=== PATIENT | male | born 1945 | race Caucasian/White ===

== ENCOUNTER 2021-08-09 07:00 | Day surgery (SDC) | payer MEDICARE, OTHER ==
[2021-08-09] MEDS: Lactated Ringers 1,000 ML IV SCH (07:17)
[2021-08-09] MEDS ORDERED: fentaNYL 100 MCG/2 ML SDV ONE (08:14)
[2021-08-09] MEDS ORDERED: Propofol 200 MG/20 ML SDV ONE ×2 (08:14→08:32)
[2021-08-09 09:35] VITALS: BP 131/62; PULSE 76
--- NOTE | 2021-08-09 14:18 | OR ---
DATE OF SURGERY: 08/09/2021. REFERRING PROVIDER: Lindy Driscoll MD PRE-OPERATIVE DIAGNOSIS: History of colon polyps. Last colonoscopy was 04/2014, and the patient had 2 adenomas at that time. POST-OPERATIVE DIAGNOSES: 1. Total of 4 polyps removed today. a. 1.5 cm collection of sessile polypoid tissue at the entry to the cecum. This was removed using several passes of the hot and cold snare. Base of this was also just lightly cauterized in a couple spots. b. 4 mm polyp at 130 cm, removed using cold forceps. c. 2 mm at 35 cm, removed using cold forceps. d. 2 mm at 20 cm, removed using cold forceps. 2. Normal-appearing terminal ileum. 3. Long tortuous colon. PROCEDURE: Colonoscopy with polypectomy x4 (1 using hot and cold snare and 3 using cold forceps). SURGEON: Camilo Whitley M.D. ANESTHESIA: Monitored anesthesia care. BOWEL PREP: Fair. He did require moderate irrigation and suctioning, mainly to the right and transverse colon. Seb, who goes by Jurgen, is a 76-year-old male who was brought to the endoscopy suite after discussing risks and benefits of the procedure. Informed consent was obtained for conscious sedation and colonoscopy with or without biopsy and/or polypectomy. We also discussed possibility of missed lesions. Pre- procedure exam was unremarkable. IV, oxygen, and monitors were placed. The patient was placed in the left lateral decubitus position. Sedation was administered and a digital rectal exam was performed and unremarkable. Colonoscope was passed into the rectum and slowly advanced all the way to the cecum. The patient did have a rather long and somewhat tortuous colon, and did require some abdominal pressure to obtain cecal intubation as well as the entire length of the scope. Cecum was viewed and photographed. Ileocecal valve was intubated and terminal ileum was normal in appearance. The colonoscope was slowly withdrawn and the mucosa was closed observed in a direct circumferential manner. The ascending colon near the entry to the cecum was remarkable for a 1.5 cm collection of sessile polypoid tissue. This was photographed and then removed using several passes of the hot and cold snare. Some light bleeding was noted and base was lightly cauterized in a couple of spots to also get rid of some little residual polypoid tissue. The ascending colon also revealed 4 mm polyp at 130 cm, removed using cold forceps times couple bites. The transverse colon was unremarkable. The descending colon was unremarkable. The sigmoid colon revealed 2 mm polyps at 35 cm and also at 20 cm, both removed using cold forceps. Retroflexion was performed and rectal mucosa was unremarkable. Scope was removed. The patient tolerated the procedure well. The patient was monitored until that baseline status. Discharge instructions were reviewed and the patient was discharged in good condition. COMPLICATIONS: None. TOTAL TIME: 48 minutes. ESTIMATED BLOOD LOSS: About 2 mL. RECOMMENDATIONS/FOLLOW-UP: We will await results of path report to determine ideal followup interval. I would like to kindly thank Dr. Driscoll for this referral. DMB: 08/09/2021 11:21:12 MODL: 08/09/2021 12:12:58 /[id number]
== END 2021-08-09 10:15 | disposition home or self-care (01) ==
LOC: VM.SDS 07:00
PROVIDERS: ATTEND Family Medicine
DX: Z12.11 Encounter for screening for malignant neoplasm of colon (principal); D12.2 Benign neoplasm of ascending colon; D12.5 Benign neoplasm of sigmoid colon; E11.9 Type 2 diabetes mellitus without complications; G89.29 Other chronic pain; I10 Essential (primary) hypertension; E78.00 Pure hypercholesterolemia, unspecified; Z79.899 Other long term (current) drug therapy; Z79.84 Long term (current) use of oral hypoglycemic drugs; Z98.890 Other specified postprocedural states; Z87.891 Personal history of nicotine dependence
CPT/HCPCS: 00811; 82947; 88305; J2704; J3010; J7120

== ENCOUNTER 2022-01-25 21:10 | Emergency (ER) | payer MEDICARE, OTHER ==
[2022-01-25] MEDS ORDERED: Sodium Chloride 0.9% 1,000 ML IV SCH (21:45)
[2022-01-25 22:26] LABS: CORONAVIRUS COVID-19 NAA NEGATIVE (NEGATIVE); RESPIRATORY SYNCYTIAL VIR NAA NEGATIVE (NEGATIVE)
[2022-01-25 22:28] LABS: ANION GAP 20.9 mmol/L (5-15)
[2022-01-25] MEDS ORDERED: cefTRIAXone 2 GM Vial ONE (22:37)
[2022-01-25] MEDS ORDERED: Furosemide 40 MG/4 ML VIAL IV ONE (22:54)
[2022-01-25 23:12] VITALS: BP 121/65; PULSE 100
[2022-01-25] MEDS ORDERED: Heparin Sodium/0.45% NaCl 25,000 UNITS/500 ML BAG IV SCH (23:15)
[2022-01-26] MEDS ORDERED: cefTRIAXone 2 GM Vial IVPUSH SCH (08:00)
[2022-01-26] MEDS ORDERED: cefTRIAXone 2 GM Vial IVPUSH ONE (22:28)
== END 2022-01-26 | disposition short-term general hospital (02) ==
LOC: VM.ED 21:10
DX: I21.4 Non-ST elevation (NSTEMI) myocardial infarction (principal); E87.2 Acidosis; I11.0 Hypertensive heart disease with heart failure; I50.9 Heart failure, unspecified; E87.1 Hypo-osmolality and hyponatremia; Z20.822 Contact with and (suspected) exposure to COVID-19; Z79.899 Other long term (current) drug therapy
CPT/HCPCS: 0241U; 36415; 71045; 73610-RT; 80053; 82550; 83605; 83615; 83880; 84484; 85025; 85379; 85730; 86140; 87040; 93005; 96365; 96375; 99284; 99284-25; J0696; J1644; J1940

== ENCOUNTER 2022-07-05 19:19 | Observation (INO) | payer MEDICARE, OTHER ==
[2022-07-05 20:06] LABS: CHLORIDE,CL 97 mmol/L (98-107); SODIUM,NA 139 mmol/L (136-145)
[2022-07-05 20:07] LABS: ESTIMATED GFR 51 mL/min (>=60)
[2022-07-05] MEDS ORDERED: Sodium Chloride 0.9% 1,000 ML IV SCH ×2 (20:45→22:15)
[2022-07-05] MEDS ORDERED: Ondansetron 4 MG Tab.DIS PO PRN (22:09)
[2022-07-05] MEDS ORDERED: Ondansetron 4 MG/2 ML SDV IV PRN (22:09)
[2022-07-05] MEDS ORDERED: Acetaminophen 325 MG Tab PO PRN (22:09)
[2022-07-05] MEDS ORDERED: Sodium Chloride 0.9% 10 ML Syringe FLUSH PRN (22:09)
[2022-07-05] MEDS ORDERED: Glucagon,Human Recombinant 1 MG Vial IM PRN (22:16)
[2022-07-05] MEDS ORDERED: tiZANidine 4 MG Tab PO PRN (22:16)
[2022-07-05] MEDS ORDERED: Cyclobenzaprine 10 MG Tab PO PRN (22:16)
[2022-07-05] MEDS ORDERED: 50% Dextrose in Water 50 ML Syringe IVPUSH PRN (22:16)
[2022-07-05] MEDS ORDERED: Diclofenac Sodium 1% Gel 100 GM Tube TOP PRN (22:16)
[2022-07-05] MEDS ORDERED: Polyethylene Glycol 3350 Powder 17 GM Packet PO PRN (22:16)
[2022-07-05] MEDS ORDERED: Non-Formulary Medication 1 Each (Glucagon [Gvoke Hypopen 1-Pack] 1 MG/0.2 ML Auto.Injct) SQ PRN (22:16)
[2022-07-05] MEDS ORDERED: Non-Formulary Medication 1 Each CAUDAL SCH (22:30)
[2022-07-06 08:41] LABS: CHLORIDE,CL 101 mmol/L (98-107); SODIUM,NA 142 mmol/L (136-145)
[2022-07-06 08:42] LABS: ESTIMATED GFR 69 mL/min (>=60)
[2022-07-06] MEDS ORDERED: INSULIN GLARG HUMAN REC ANALOG 100 UNIT/ML SUBCUT SCH (09:00)
[2022-07-06] MEDS ORDERED: amLODIPine 2.5 MG Tab PO SCH (09:00)
[2022-07-06] MEDS ORDERED: Insulin Lispro 100 Units/ML 3 ML Vial SUBCUT SCH (09:00)
[2022-07-06] MEDS ORDERED: Hydrochlorothiazide 25 MG Tab PO SCH (09:00)
[2022-07-06] MEDS ORDERED: glipiZIDE 5 MG Tab.ER PO SCH (09:00)
[2022-07-06] MEDS ORDERED: Pantoprazole 40 MG Tab.CR PO SCH (09:00)
[2022-07-06] MEDS ORDERED: Multivitamins with Iron/Calcium/Folic Acid/Minerals Tab PO SCH (09:00)
[2022-07-06] MEDS ORDERED: Furosemide 20 MG/2 ML VIAL IV SCH (09:00)
[2022-07-06] MEDS ORDERED: FLUoxetine 20 MG Cap PO SCH (09:00)
[2022-07-06] MEDS ORDERED: Insulin Glarg,Human.Rec.Analog 100 Unit/ML SUBCUT SCH (09:00)
[2022-07-06] MEDS ORDERED: Fish Oil/Omega-3 Fatty Acids 1 Gm Cap PO SCH (09:00)
[2022-07-06] MEDS ORDERED: Apixaban 2.5 MG Tab PO SCH (09:00)
[2022-07-06] MEDS ORDERED: predniSONE 10 MG Tab PO SCH (09:00)
[2022-07-06] MEDS ORDERED: Aspirin 81 MG Tab.EC PO SCH (09:00)
[2022-07-06] MEDS ORDERED: Baclofen 10 MG Tab PO SCH (09:00)
[2022-07-06] MEDS: Gabapentin 400 MG Cap PO SCH ×2 (09:48→12:38)
[2022-07-06] MEDS ORDERED: INSULIN LISPRO 100 UNIT/ML SUBCUT SCH (10:00)
[2022-07-06 11:25] VITALS: BP 121/54; PULSE 99
[2022-07-06] MEDS ORDERED: Furosemide 20 MG Tab PO ONE (14:04)
[2022-07-06] MEDS ORDERED: Metoprolol Succinate 25 MG Tab.ER PO SCH (21:00)
[2022-07-07] MEDS ORDERED: Furosemide 20 MG Tab PO SCH (09:00)
[2022-07-07] MEDS ORDERED: INSULIN GLARG HUMAN REC ANALOG 100 UNIT/ML SUBCUT SCH (09:00)
[2022-07-08] MEDS ORDERED: Sulfamethoxazole/Trimethoprim 800-160 MG Tab PO SCH (09:00)
[2022-07-24] MEDS ORDERED: predniSONE 10 MG Tab PO SCH (09:00)
[2022-08-23] MEDS ORDERED: predniSONE 5 MG Tab PO SCH (09:00)
== END 2022-07-06 14:30 | disposition home or self-care (01) ==
LOC: VM.ED 19:19 → VM.MS 22:00
PROVIDERS: ADMIT Physician Assistant Medical; ATTEND Physician Assistant Medical
DX: I11.0 Hypertensive heart disease with heart failure (principal); I50.1 Left ventricular failure, unspecified; R79.89 Other specified abnormal findings of blood chemistry; R53.1 Weakness; I45.10 Unspecified right bundle-branch block; J43.1 Panlobular emphysema; E80.0 Hereditary erythropoietic porphyria; F41.9 Anxiety disorder, unspecified; E11.9 Type 2 diabetes mellitus without complications; E66.9 Obesity, unspecified; E87.5 Hyperkalemia; G89.29 Other chronic pain; M25.551 Pain in right hip; M25.552 Pain in left hip; Z68.30 Body mass index [BMI] 30.0-30.9, adult; Z98.890 Other specified postprocedural states; Z87.891 Personal history of nicotine dependence; Z98.1 Arthrodesis status; Z79.84 Long term (current) use of oral hypoglycemic drugs; Z79.82 Long term (current) use of aspirin; Z79.899 Other long term (current) drug therapy; Z20.822 Contact with and (suspected) exposure to COVID-19; Z79.891 Long term (current) use of opiate analgesic
CPT/HCPCS: 36415; 70450; 71045; 80053; 81003; 82550; 82947; 83605; 83615; 83880; 84484; 85025; 86140; 93005; 93010; 94760; 96374; 99217; 99220; 99285; A9270-GY; G0378; J1815-GY; J1940; J7030; J7512; U0002

== ENCOUNTER 2022-07-15 19:10 | Emergency (ER) | payer MEDICARE, OTHER ==
[2022-07-15 20:12] LABS: ANION GAP 14.1 mmol/L (5-15); CHLORIDE,CL 89 mmol/L (98-107); ESTIMATED GFR 62 mL/min (>=60); SODIUM,NA 130 mmol/L (136-145)
[2022-07-15 21:18] VITALS: BP 152/51; PULSE 87
== END 2022-07-15 21:03 | disposition home or self-care (01) ==
LOC: VM.ED 19:10
DX: G89.4 Chronic pain syndrome (principal); M54.50 Low back pain, unspecified; E78.00 Pure hypercholesterolemia, unspecified; I10 Essential (primary) hypertension; E11.9 Type 2 diabetes mellitus without complications; E66.9 Obesity, unspecified; Z68.31 Body mass index [BMI] 31.0-31.9, adult; Z79.82 Long term (current) use of aspirin; Z79.4 Long term (current) use of insulin; Z79.899 Other long term (current) drug therapy
CPT/HCPCS: 36415; 74176; 80053; 81001; 83605; 83880; 85025; 86140; 87086; 93010; 99284

== ENCOUNTER 2022-08-25 08:40 | Inpatient (IN) | payer MEDICARE, OTHER ==
[2022-08-25] MEDS ORDERED: Sodium Chloride 0.9% 10 ML Syringe FLUSH PRN (09:00)
[2022-08-25 10:03] LABS: PTT,PARTIAL THROMBOPLSTIN TIME 28.4 SEC (20.5-30.9)
[2022-08-25 10:10] LABS: CORONAVIRUS COVID-19 NAA NEGATIVE (NEGATIVE); RESPIRATORY SYNCYTIAL VIR NAA NEGATIVE (NEGATIVE)
[2022-08-25] MEDS ORDERED: cefTRIAXone 2 GM Vial IVPUSH ONE (10:13)
[2022-08-25] MEDS ORDERED: Iopamidol 755 Mg/ML 100 ML Bottle IVPUSH ONE (10:18)
[2022-08-25] MEDS ORDERED: Azithromycin 500 MG in Sodium Chloride 0.9% 250 ML IV ONE (10:51)
[2022-08-25] MEDS ORDERED: Sodium Chloride 0.9% 1,000 ML IV SCH (11:00)
[2022-08-25] MEDS ORDERED: methylPREDNISolone Sodium Succinate 125 MG/2 ML SDV IV ONE (11:18)
[2022-08-25] MEDS ORDERED: Acetaminophen 325 MG Tab PO PRN (12:19)
[2022-08-25] MEDS ORDERED: methylPREDNISolone Sodium Succinate 125 MG/2 ML SDV ONE (13:32)
[2022-08-25] MEDS ORDERED: 50% Dextrose in Water 50 ML Syringe IVPUSH PRN (13:36)
[2022-08-25] MEDS ORDERED: Diclofenac Sodium 1% Gel 100 GM Tube TOP PRN (13:36)
[2022-08-25] MEDS ORDERED: Glucagon,Human Recombinant 1 MG Vial IM PRN (13:36)
[2022-08-25] MEDS ORDERED: INTRATHECAL PUMP EPIDUR SCH (13:45)
[2022-08-25] MEDS ORDERED: Hypromellose 0.3% Ophth Soln 15 ML Bottle EYEBOTH PRN (14:13)
[2022-08-25] MEDS ORDERED: Insulin Lispro 100 Units/ML 3 ML Vial SUBCUT SCH (18:00)
[2022-08-25] MEDS ORDERED: Albuterol/Ipratropium 3.0-0.5 MG/3 ML Neb Soln NEB PRN (18:57)
[2022-08-25] MEDS ORDERED: Metoprolol Succinate 25 MG Tab.ER PO SCH (21:00)
[2022-08-25] MEDS ORDERED: Polyethylene Glycol 3350 Powder 17 GM Packet PO SCH (21:00)
[2022-08-25] MEDS ORDERED: Apixaban 2.5 MG Tab PO SCH (21:00)
[2022-08-25] MEDS ORDERED: Gabapentin 400 MG Cap PO SCH (21:00)
[2022-08-25] MEDS ORDERED: Baclofen 10 MG Tab PO SCH (21:00)
[2022-08-25 21:10] VITALS: BP 146/67; PULSE 97
[2022-08-26] MEDS ORDERED: Pantoprazole 40 MG Tab.CR PO SCH (07:00)
[2022-08-26] MEDS ORDERED: Furosemide 20 MG Tab PO SCH (09:00)
[2022-08-26] MEDS ORDERED: Azithromycin 250 MG Tab PO SCH (09:00)
[2022-08-26] MEDS ORDERED: FLUoxetine 20 MG Cap PO SCH (09:00)
[2022-08-26] MEDS ORDERED: Sulfamethoxazole/Trimethoprim 800-160 MG Tab PO SCH (09:00)
[2022-08-26] MEDS ORDERED: Fenofibrate,Micronized 134 MG Cap PO SCH (09:00)
[2022-08-26] MEDS ORDERED: cefTRIAXone 2 GM Vial IVPUSH SCH (09:00)
[2022-08-26] MEDS ORDERED: Aspirin 81 MG Tab.EC PO SCH (09:00)
[2022-08-26] MEDS ORDERED: glipiZIDE 5 MG Tab.ER PO SCH (09:00)
[2022-08-26] MEDS ORDERED: predniSONE 20 MG Tab PO SCH (09:00)
[2022-08-26] MEDS ORDERED: Hydrochlorothiazide 25 MG Tab PO SCH (09:00)
[2022-08-26] MEDS ORDERED: Insulin Glarg,Human.Rec.Analog 100 Unit/ML SUBCUT SCH (09:00)
[2022-08-26] MEDS ORDERED: amLODIPine 2.5 MG Tab PO SCH (09:00)
[2022-08-26] MEDS ORDERED: Furosemide 20 MG Tab ONE (10:41)
[2022-08-26] MEDS ORDERED: Pantoprazole 40 MG Tab.CR ONE (10:41)
[2022-08-26] MEDS ORDERED: Baclofen 10 MG Tab ONE (10:41)
[2022-08-26] MEDS ORDERED: Aspirin 81 MG Tab.EC ONE (10:41)
[2022-08-26] MEDS ORDERED: Azithromycin 250 MG Tab ONE (10:41)
[2022-08-26] MEDS ORDERED: Cyclobenzaprine 10 MG Tab ONE ×2 (10:41→23:32)
[2022-08-26] MEDS ORDERED: FLUoxetine 20 MG Cap ONE (10:41)
[2022-08-26] MEDS ORDERED: Fenofibrate,Micronized 134 MG Cap ONE (10:41)
[2022-08-26] MEDS ORDERED: Albuterol/Ipratropium 3.0-0.5 MG/3 ML Neb Soln ONE (10:41)
[2022-08-26] MEDS ORDERED: amLODIPine 2.5 MG Tab ONE (10:41)
[2022-08-26] MEDS ORDERED: Gabapentin 400 MG Cap ONE (10:41)
[2022-08-26] MEDS ORDERED: Sulfamethoxazole/Trimethoprim 800-160 MG Tab ONE (10:41)
[2022-08-26] MEDS ORDERED: Metoprolol Succinate 25 MG Tab.ER ONE (10:41)
[2022-08-26] MEDS ORDERED: Apixaban 2.5 MG Tab ONE (10:41)
[2022-08-26] MEDS ORDERED: Hydrochlorothiazide 25 MG Tab ONE (10:41)
[2022-08-26] MEDS ORDERED: cefTRIAXone 2 GM Vial ONE (10:41)
[2022-08-26] MEDS ORDERED: Polyethylene Glycol 3350 Powder 17 GM Packet ONE (10:41)
[2022-08-26] MEDS ORDERED: glipiZIDE 5 MG Tab.ER ONE (10:41)
[2022-08-26] MEDS ORDERED: predniSONE 20 MG Tab ONE (10:41)
[2022-08-26] MEDS ORDERED: Acetaminophen 325 MG Tab ONE (10:41)
[2022-08-27] MEDS ORDERED: oxyCODONE 5 MG Tab ONE ×2 (03:40→08:52)
[2022-08-27] MEDS ORDERED: Morphine 2 MG/ML SYRINGE ONE ×2 (06:20→08:52)
[2022-08-27] MEDS ORDERED: Furosemide 20 MG Tab ONE (08:52)
[2022-08-27] MEDS ORDERED: cefTRIAXone 2 GM Vial ONE (08:52)
[2022-08-27] MEDS ORDERED: FLUoxetine 20 MG Cap ONE (08:52)
[2022-08-27] MEDS ORDERED: Baclofen 10 MG Tab ONE (08:52)
[2022-08-27] MEDS ORDERED: Azithromycin 250 MG Tab ONE (08:52)
[2022-08-27] MEDS ORDERED: Polyethylene Glycol 3350 Powder 17 GM Packet ONE (08:52)
[2022-08-27] MEDS ORDERED: Apixaban 2.5 MG Tab ONE (08:52)
[2022-08-27] MEDS ORDERED: Acetaminophen 325 MG Tab ONE (08:52)
[2022-08-27] MEDS ORDERED: amLODIPine 2.5 MG Tab ONE (08:52)
[2022-08-27] MEDS ORDERED: Aspirin 81 MG Tab.EC ONE (08:52)
[2022-08-27] MEDS ORDERED: glipiZIDE 5 MG Tab.ER ONE (08:52)
[2022-08-27] MEDS ORDERED: Metoprolol Succinate 25 MG Tab.ER ONE (08:52)
[2022-08-27] MEDS ORDERED: predniSONE 20 MG Tab ONE (08:52)
[2022-08-27] MEDS ORDERED: Albuterol/Ipratropium 3.0-0.5 MG/3 ML Neb Soln ONE (08:52)
[2022-08-27] MEDS ORDERED: Gabapentin 400 MG Cap ONE (08:52)
[2022-08-27] MEDS ORDERED: Pantoprazole 40 MG Tab.CR ONE (08:52)
[2022-08-27] MEDS ORDERED: Hydrochlorothiazide 25 MG Tab ONE (08:52)
[2022-08-27] MEDS ORDERED: Fenofibrate,Micronized 134 MG Cap ONE (08:52)
[2022-08-28] MEDS ORDERED: Cyclobenzaprine 10 MG Tab ONE ×3 (04:12→09:44)
[2022-08-28] MEDS ORDERED: Furosemide 40 MG/4 ML VIAL ONE ×2 (08:15→08:21)
[2022-08-28] MEDS ORDERED: methylPREDNISolone Sodium Succinate 125 MG/2 ML SDV ONE ×2 (08:15→08:21)
[2022-08-28] MEDS ORDERED: Fenofibrate,Micronized 134 MG Cap ONE (08:21)
[2022-08-28] MEDS ORDERED: Baclofen 10 MG Tab ONE (08:21)
[2022-08-28] MEDS ORDERED: FLUoxetine 20 MG Cap ONE (08:21)
[2022-08-28] MEDS ORDERED: Azithromycin 250 MG Tab ONE (08:21)
[2022-08-28] MEDS ORDERED: amLODIPine 2.5 MG Tab ONE (08:21)
[2022-08-28] MEDS ORDERED: glipiZIDE 2.5 MG Tab.ER ONE (08:21)
[2022-08-28] MEDS ORDERED: Furosemide 20 MG/2 ML VIAL ONE ×2 (08:21→10:24)
[2022-08-28] MEDS ORDERED: cefTRIAXone 1 GM Vial ONE ×2 (08:21→10:29)
[2022-08-28] MEDS ORDERED: Apixaban 2.5 MG Tab ONE (08:21)
[2022-08-28] MEDS ORDERED: Polyethylene Glycol 3350 Powder 17 GM Packet ONE (08:21)
[2022-08-28] MEDS ORDERED: Pantoprazole 40 MG Tab.CR ONE (08:21)
[2022-08-28] MEDS ORDERED: Cefepime 1 GM Vial ONE ×2 (08:21→11:05)
[2022-08-28] MEDS ORDERED: Aspirin 81 MG Tab.EC ONE (08:21)
[2022-08-28] MEDS ORDERED: Furosemide 20 MG Tab ONE (08:21)
[2022-08-28] MEDS ORDERED: Sulfamethoxazole/Trimethoprim 800-160 MG Tab ONE (08:21)
[2022-08-28] MEDS ORDERED: cefTRIAXone 2 GM Vial ONE (08:21)
[2022-08-28] MEDS ORDERED: Gabapentin 400 MG Cap ONE (08:21)
[2022-08-28] MEDS ORDERED: Albuterol/Ipratropium 3.0-0.5 MG/3 ML Neb Soln ONE ×2 (08:21→10:24)
[2022-08-28] MEDS ORDERED: Acetaminophen 325 MG Tab ONE (08:21)
[2022-08-28] MEDS ORDERED: Vancomycin/Water for INJ (PEG) 1.5 GM/300 ML Premix ONE (08:21)
[2022-08-28] MEDS ORDERED: VANCOmycin 1.5 GM/300 ML 300 ML ONE (11:05)
[2022-08-28 11:46] LABS: ANION GAP 9.8 mmol/L (5-15)
[2022-08-28 13:08] LABS: PCO2 ARTERIAL,POC 37 mmHg (35-48)
[2022-09-15] MEDS ORDERED: Gabapentin 300 MG Cap ONE (20:03)
[2022-09-19 15:48] LABS: ANION GAP 11.4 mmol/L (5-15)
[2022-09-19 15:49] LABS: PCO2 ARTERIAL,POC 38 mmHg (35-48)
[2022-09-19 16:23] LABS: PCO2 ARTERIAL,POC 37 mmHg (35-48)
[2022-09-19 16:25] LABS: ANION GAP 12.3 mmol/L (5-15)
== END 2022-08-28 12:20 | disposition short-term general hospital (02) | DRG 193 ==
LOC: VM.ED 08:40 → UNDOADMIN 11:39 → VM.MS 11:39 → VM.ZCENSUS 08-26 12:12
PROVIDERS: ADMIT Family Medicine; ATTEND Family Medicine
DX: J18.9 Pneumonia, unspecified organism (principal); J96.21 Acute and chronic respiratory failure with hypoxia; L03.116 Cellulitis of left lower limb; E11.9 Type 2 diabetes mellitus without complications; M54.50 Low back pain, unspecified; M60.9 Myositis, unspecified; J43.1 Panlobular emphysema; Z96.698 Presence of other orthopedic joint implants; Z20.822 Contact with and (suspected) exposure to COVID-19; I10 Essential (primary) hypertension; J84.10 Pulmonary fibrosis, unspecified; K59.00 Constipation, unspecified; I48.0 Paroxysmal atrial fibrillation; G89.4 Chronic pain syndrome; I48.91 Unspecified atrial fibrillation; E78.5 Hyperlipidemia, unspecified; F32.A Depression, unspecified; G25.81 Restless legs syndrome; E66.9 Obesity, unspecified; Z79.82 Long term (current) use of aspirin; Z68.29 Body mass index [BMI] 29.0-29.9, adult; Z79.899 Other long term (current) drug therapy; Z86.010 Personal history of colon polyps; Z79.4 Long term (current) use of insulin; Z87.891 Personal history of nicotine dependence; Z98.42 Cataract extraction status, left eye; Z98.41 Cataract extraction status, right eye; Z90.89 Acquired absence of other organs; Z79.01 Long term (current) use of anticoagulants
CPT/HCPCS: 0241U; 36415; 36600; 71045; 71275; 80048; 80053; 81003; 82803; 82947; 83605; 83735; 83880; 84484; 85025; 85379; 85610; 85730; 86140; 87040; 93005; 93010; 94640; 94660; 94760; 96374; 96375; 97161-GP; 99285; 99285-25; A9270-GY; J0456; J0692; J0696; J1815-GY; J1940; J2270; J2930; J3370; J7030; J7050; J7512; J7620-GY; Q9967

== ENCOUNTER 2022-09-10 14:03 | Inpatient (IN) | payer MEDICARE, OTHER ==
[2022-09-10] MEDS ORDERED: Albuterol 0.083% 2.5 MG/3 ML Neb Soln NEB PRN (15:00)
[2022-09-10] MEDS ORDERED: Glucagon,Human Recombinant 1 MG Vial IM PRN (16:36)
[2022-09-10] MEDS ORDERED: Cyclobenzaprine 10 MG Tab PO PRN (16:38)
[2022-09-10] MEDS ORDERED: Polyethylene Glycol 3350 Powder 17 GM Packet PO PRN (16:48)
[2022-09-10] MEDS ORDERED: Hypromellose 0.3% Ophth Soln 15 ML Bottle EYEBOTH PRN (16:50)
[2022-09-10] MEDS ORDERED: Magnesium Hydroxide 400 MG/5 ML Susp 30 ML Cup PO PRN (16:56)
[2022-09-10] MEDS ORDERED: Docusate Sodium 100 MG Cap PO PRN (16:57)
[2022-09-10] MEDS: Acetaminophen 500 MG Tab PO PRN (17:22)
[2022-09-10] MEDS: Insulin Lispro 100 Units/ML 3 ML Vial SUBCUT SCH ×3 (18:23→20:54)
[2022-09-10] MEDS: Insulin Glarg,Human.Rec.Analog 100 Unit/ML SUBCUT SCH (21:00)
[2022-09-10] MEDS: Melatonin 3 MG Tab PO SCH (21:02)
[2022-09-10] MEDS: Gabapentin 400 MG Cap PO SCH (21:02)
[2022-09-10] MEDS: Fish Oil/Omega-3 Fatty Acids 1 Gm Cap PO SCH (21:03)
[2022-09-10] MEDS: Baclofen 10 MG Tab PO SCH (21:03)
[2022-09-10] MEDS: Apixaban 2.5 MG Tab PO SCH (21:03)
[2022-09-10] MEDS: Albuterol/Ipratropium 3.0-0.5 MG/3 ML Neb Soln NEB SCH (21:05)
[2022-09-10] MEDS: Budesonide 0.5 MG/2 ML Neb Susp NEB SCH (21:05)
[2022-09-10] MEDS: Diclofenac Sodium 1% Gel 100 GM Tube TOP SCH (21:20)
[2022-09-11] MEDS: Pantoprazole 40 MG Tab.CR PO SCH (06:52)
[2022-09-11] MEDS: Budesonide 0.5 MG/2 ML Neb Susp NEB SCH ×2 (07:46→20:41)
[2022-09-11] MEDS: Albuterol/Ipratropium 3.0-0.5 MG/3 ML Neb Soln NEB SCH ×2 (07:46→20:41)
[2022-09-11] MEDS: Aspirin 81 MG Tab.EC PO SCH (08:17)
[2022-09-11] MEDS: Gabapentin 400 MG Cap PO SCH ×3 (08:17→20:39)
[2022-09-11] MEDS: Metoprolol Succinate 25 MG Tab.ER PO SCH (08:18)
[2022-09-11] MEDS: Cholecalciferol (Vitamin D3) 25 MCG Tab PO SCH (08:18)
[2022-09-11] MEDS: Fish Oil/Omega-3 Fatty Acids 1 Gm Cap PO SCH ×2 (08:22→20:40)
[2022-09-11] MEDS: predniSONE 20 MG Tab PO SCH (08:22)
[2022-09-11] MEDS: Multivitamins with Iron/Calcium/Folic Acid/Minerals Tab PO SCH (08:22)
[2022-09-11] MEDS: Fenofibrate,Micronized 134 MG Cap PO SCH (08:22)
[2022-09-11] MEDS: Sulfamethoxazole/Trimethoprim 800-160 MG Tab PO SCH (08:23)
[2022-09-11] MEDS: Baclofen 10 MG Tab PO SCH ×2 (08:23→20:40)
[2022-09-11] MEDS: FLUoxetine 20 MG Cap PO SCH (08:24)
[2022-09-11] MEDS: Furosemide 20 MG Tab PO SCH (08:25)
[2022-09-11] MEDS: Insulin Lispro 100 Units/ML 3 ML Vial SUBCUT SCH ×7 (08:27→20:30)
[2022-09-11] MEDS: Diclofenac Sodium 1% Gel 100 GM Tube TOP SCH ×2 (08:28→20:33)
[2022-09-11] MEDS: Insulin Glarg,Human.Rec.Analog 100 Unit/ML SUBCUT SCH ×2 (08:28→20:27)
[2022-09-11] MEDS: Apixaban 2.5 MG Tab PO SCH ×2 (08:30→21:13)
[2022-09-11] MEDS ORDERED: atorvaSTATin 40 MG Tab PO SCH (09:00)
[2022-09-11] MEDS: Acetaminophen 500 MG Tab PO PRN (10:18)
[2022-09-11] MEDS: Ferrous Sulfate 325 MG Tab PO SCH (10:18)
[2022-09-11] MEDS ORDERED: Melatonin 3 MG Tab PO PRN (19:19)
[2022-09-11] MEDS: Melatonin 3 MG Tab PO SCH (23:51)
[2022-09-12] MEDS ORDERED: [UNRECOGNIZED DRUG - SUPPLY] SCH (00:01)
[2022-09-12] MEDS: Pantoprazole 40 MG Tab.CR PO SCH (06:42)
[2022-09-12] MEDS: Budesonide 0.5 MG/2 ML Neb Susp NEB SCH ×2 (06:43→20:01)
[2022-09-12] MEDS: Albuterol/Ipratropium 3.0-0.5 MG/3 ML Neb Soln NEB SCH ×2 (06:43→20:00)
[2022-09-12] MEDS: Fenofibrate,Micronized 134 MG Cap PO SCH (08:29)
[2022-09-12] MEDS: Aspirin 81 MG Tab.EC PO SCH (08:30)
[2022-09-12] MEDS: Fish Oil/Omega-3 Fatty Acids 1 Gm Cap PO SCH ×2 (08:30→20:02)
[2022-09-12] MEDS: FLUoxetine 20 MG Cap PO SCH (08:30)
[2022-09-12] MEDS: Gabapentin 400 MG Cap PO SCH ×3 (08:30→20:01)
[2022-09-12] MEDS: Metoprolol Succinate 25 MG Tab.ER PO SCH (08:31)
[2022-09-12] MEDS: Furosemide 20 MG Tab PO SCH (08:32)
[2022-09-12] MEDS: Cholecalciferol (Vitamin D3) 25 MCG Tab PO SCH (08:32)
[2022-09-12] MEDS: Baclofen 10 MG Tab PO SCH ×2 (08:32→20:02)
[2022-09-12] MEDS: Multivitamins with Iron/Calcium/Folic Acid/Minerals Tab PO SCH (08:32)
[2022-09-12] MEDS: Apixaban 2.5 MG Tab PO SCH ×2 (08:33→20:01)
[2022-09-12] MEDS: predniSONE 20 MG Tab PO SCH (08:34)
[2022-09-12] MEDS: Diclofenac Sodium 1% Gel 100 GM Tube TOP SCH ×2 (08:35→20:15)
[2022-09-12] MEDS: Insulin Lispro 100 Units/ML 3 ML Vial SUBCUT SCH ×7 (08:37→20:23)
[2022-09-12] MEDS: Insulin Glarg,Human.Rec.Analog 100 Unit/ML SUBCUT SCH ×2 (08:39→20:21)
[2022-09-12] MEDS: Acetaminophen 500 MG Tab PO PRN ×2 (14:14→20:25)
[2022-09-12] MEDS: Melatonin 3 MG Tab PO SCH (20:18)
[2022-09-13] MEDS: Acetaminophen 500 MG Tab PO PRN ×2 (05:58→21:03)
[2022-09-13] MEDS: Budesonide 0.5 MG/2 ML Neb Susp NEB SCH ×2 (06:09→20:47)
[2022-09-13] MEDS: Albuterol/Ipratropium 3.0-0.5 MG/3 ML Neb Soln NEB SCH ×2 (06:09→20:47)
[2022-09-13] MEDS: Pantoprazole 40 MG Tab.CR PO SCH (06:09)
[2022-09-13 07:00] LABS: ANION GAP 15.4 mmol/L (5-15)
[2022-09-13] MEDS: FLUoxetine 20 MG Cap PO SCH (08:57)
[2022-09-13] MEDS: Apixaban 2.5 MG Tab PO SCH ×2 (08:57→20:51)
[2022-09-13] MEDS: predniSONE 20 MG Tab PO SCH (08:57)
[2022-09-13] MEDS: Gabapentin 400 MG Cap PO SCH ×3 (08:58→20:47)
[2022-09-13] MEDS: Fenofibrate,Micronized 134 MG Cap PO SCH (08:58)
[2022-09-13] MEDS: Baclofen 10 MG Tab PO SCH ×2 (08:58→20:50)
[2022-09-13] MEDS: Fish Oil/Omega-3 Fatty Acids 1 Gm Cap PO SCH ×2 (08:58→20:48)
[2022-09-13] MEDS: Sulfamethoxazole/Trimethoprim 800-160 MG Tab PO SCH (08:58)
[2022-09-13] MEDS: Multivitamins with Iron/Calcium/Folic Acid/Minerals Tab PO SCH (08:59)
[2022-09-13] MEDS: Aspirin 81 MG Tab.EC PO SCH (08:59)
[2022-09-13] MEDS: Cholecalciferol (Vitamin D3) 25 MCG Tab PO SCH (08:59)
[2022-09-13] MEDS: Furosemide 20 MG Tab PO SCH (08:59)
[2022-09-13] MEDS: Diclofenac Sodium 1% Gel 100 GM Tube TOP SCH ×2 (09:04→20:52)
[2022-09-13] MEDS: Insulin Lispro 100 Units/ML 3 ML Vial SUBCUT SCH ×7 (09:04→21:06)
[2022-09-13] MEDS: Metoprolol Succinate 25 MG Tab.ER PO SCH (09:06)
[2022-09-13] MEDS: Ferrous Sulfate 325 MG Tab PO SCH (09:08)
[2022-09-13] MEDS: Insulin Glarg,Human.Rec.Analog 100 Unit/ML SUBCUT SCH (09:19)
[2022-09-13] MEDS: Melatonin 3 MG Tab PO SCH (20:55)
[2022-09-14] MEDS: Acetaminophen 500 MG Tab PO PRN ×2 (05:23→14:56)
[2022-09-14] MEDS: Pantoprazole 40 MG Tab.CR PO SCH (06:01)
[2022-09-14] MEDS: Albuterol/Ipratropium 3.0-0.5 MG/3 ML Neb Soln NEB SCH ×2 (06:02→20:57)
[2022-09-14] MEDS: Budesonide 0.5 MG/2 ML Neb Susp NEB SCH ×2 (06:02→20:57)
[2022-09-14] MEDS: Fenofibrate,Micronized 134 MG Cap PO SCH (09:12)
[2022-09-14] MEDS: Apixaban 2.5 MG Tab PO SCH ×2 (09:12→20:55)
[2022-09-14] MEDS: Furosemide 20 MG Tab PO SCH (09:13)
[2022-09-14] MEDS: Gabapentin 400 MG Cap PO SCH ×3 (09:13→20:54)
[2022-09-14] MEDS: predniSONE 20 MG Tab PO SCH (09:13)
[2022-09-14] MEDS: Metoprolol Succinate 25 MG Tab.ER PO SCH (09:14)
[2022-09-14] MEDS: FLUoxetine 20 MG Cap PO SCH (09:14)
[2022-09-14] MEDS: Aspirin 81 MG Tab.EC PO SCH (09:14)
[2022-09-14] MEDS: Baclofen 10 MG Tab PO SCH ×2 (09:14→20:56)
[2022-09-14] MEDS: Cholecalciferol (Vitamin D3) 25 MCG Tab PO SCH (09:14)
[2022-09-14] MEDS: Fish Oil/Omega-3 Fatty Acids 1 Gm Cap PO SCH ×2 (09:14→20:56)
[2022-09-14] MEDS: Multivitamins with Iron/Calcium/Folic Acid/Minerals Tab PO SCH (09:15)
[2022-09-14] MEDS: Insulin Glarg,Human.Rec.Analog 100 Unit/ML SUBCUT SCH (09:25)
[2022-09-14] MEDS: Diclofenac Sodium 1% Gel 100 GM Tube TOP SCH ×2 (09:27→21:00)
[2022-09-14] MEDS: Insulin Lispro 100 Units/ML 3 ML Vial SUBCUT SCH ×3 (11:51→17:26)
[2022-09-14] MEDS: Cyclobenzaprine 10 MG Tab PO PRN (19:23)
[2022-09-14] MEDS: Melatonin 3 MG Tab PO SCH (20:56)
[2022-09-15] MEDS: Albuterol/Ipratropium 3.0-0.5 MG/3 ML Neb Soln NEB SCH ×2 (06:26→20:51)
[2022-09-15] MEDS: Pantoprazole 40 MG Tab.CR PO SCH (06:26)
[2022-09-15] MEDS: Budesonide 0.5 MG/2 ML Neb Susp NEB SCH ×2 (06:26→20:51)
[2022-09-15] MEDS: Acetaminophen 500 MG Tab PO PRN ×2 (07:03→14:27)
[2022-09-15] MEDS: Apixaban 2.5 MG Tab PO SCH ×2 (08:09→20:51)
[2022-09-15] MEDS: Gabapentin 400 MG Cap PO SCH ×3 (08:09→21:06)
[2022-09-15] MEDS: FLUoxetine 20 MG Cap PO SCH (08:09)
[2022-09-15] MEDS: Fenofibrate,Micronized 134 MG Cap PO SCH (08:09)
[2022-09-15] MEDS: Cholecalciferol (Vitamin D3) 25 MCG Tab PO SCH (08:10)
[2022-09-15] MEDS: Metoprolol Succinate 25 MG Tab.ER PO SCH (08:11)
[2022-09-15] MEDS: predniSONE 20 MG Tab PO SCH (08:12)
[2022-09-15] MEDS: Furosemide 20 MG Tab PO SCH (08:12)
[2022-09-15] MEDS: Multivitamins with Iron/Calcium/Folic Acid/Minerals Tab PO SCH (08:12)
[2022-09-15] MEDS: Aspirin 81 MG Tab.EC PO SCH (08:12)
[2022-09-15] MEDS: Fish Oil/Omega-3 Fatty Acids 1 Gm Cap PO SCH ×2 (08:12→20:52)
[2022-09-15] MEDS: Baclofen 10 MG Tab PO SCH ×2 (08:13→20:52)
[2022-09-15] MEDS: Insulin Lispro 100 Units/ML 3 ML Vial SUBCUT SCH ×2 (08:19→17:24)
[2022-09-15] MEDS: Insulin Glarg,Human.Rec.Analog 100 Unit/ML SUBCUT SCH (08:21)
[2022-09-15] MEDS: Diclofenac Sodium 1% Gel 100 GM Tube TOP SCH ×2 (08:23→21:14)
[2022-09-15] MEDS: Ferrous Sulfate 325 MG Tab PO SCH (08:27)
[2022-09-15] MEDS: Cyclobenzaprine 10 MG Tab PO PRN (10:47)
[2022-09-15] MEDS ORDERED: Gabapentin 300 MG Cap ONE (13:00)
[2022-09-15] MEDS: Melatonin 3 MG Tab PO SCH (20:51)
[2022-09-16] MEDS: Pantoprazole 40 MG Tab.CR PO SCH (06:10)
[2022-09-16] MEDS: Budesonide 0.5 MG/2 ML Neb Susp NEB SCH ×2 (06:10→20:05)
[2022-09-16] MEDS: Albuterol/Ipratropium 3.0-0.5 MG/3 ML Neb Soln NEB SCH ×2 (06:10→20:05)
[2022-09-16] MEDS: Cholecalciferol (Vitamin D3) 25 MCG Tab PO SCH (09:39)
[2022-09-16] MEDS: Aspirin 81 MG Tab.EC PO SCH (09:39)
[2022-09-16] MEDS: Fenofibrate,Micronized 134 MG Cap PO SCH (09:39)
[2022-09-16] MEDS: Apixaban 2.5 MG Tab PO SCH ×2 (09:39→20:06)
[2022-09-16] MEDS: Baclofen 10 MG Tab PO SCH ×2 (09:39→20:06)
[2022-09-16] MEDS: Fish Oil/Omega-3 Fatty Acids 1 Gm Cap PO SCH ×2 (09:40→20:06)
[2022-09-16] MEDS: Multivitamins with Iron/Calcium/Folic Acid/Minerals Tab PO SCH (09:41)
[2022-09-16] MEDS: FLUoxetine 20 MG Cap PO SCH (09:41)
[2022-09-16] MEDS: predniSONE 20 MG Tab PO SCH (09:41)
[2022-09-16] MEDS: Gabapentin 400 MG Cap PO SCH ×3 (09:42→20:06)
[2022-09-16] MEDS: Furosemide 20 MG Tab PO SCH (09:42)
[2022-09-16] MEDS: Metoprolol Succinate 25 MG Tab.ER PO SCH (09:42)
[2022-09-16] MEDS: Sulfamethoxazole/Trimethoprim 800-160 MG Tab PO SCH (09:43)
[2022-09-16] MEDS: Acetaminophen 500 MG Tab PO PRN ×2 (09:51→17:45)
[2022-09-16] MEDS: Insulin Glarg,Human.Rec.Analog 100 Unit/ML SUBCUT SCH (09:53)
[2022-09-16] MEDS: Insulin Lispro 100 Units/ML 3 ML Vial SUBCUT SCH ×2 (09:54→17:24)
[2022-09-16] MEDS: Diclofenac Sodium 1% Gel 100 GM Tube TOP SCH ×2 (10:10→20:07)
[2022-09-16] MEDS: Melatonin 3 MG Tab PO SCH (20:06)
[2022-09-17] MEDS: Acetaminophen 500 MG Tab PO PRN ×3 (05:25→18:05)
[2022-09-17] MEDS: Albuterol/Ipratropium 3.0-0.5 MG/3 ML Neb Soln NEB SCH ×2 (06:22→20:21)
[2022-09-17] MEDS: Budesonide 0.5 MG/2 ML Neb Susp NEB SCH ×2 (06:22→20:21)
[2022-09-17] MEDS: Pantoprazole 40 MG Tab.CR PO SCH (06:22)
[2022-09-17 07:30] LABS: ANION GAP 11.4 mmol/L (5-15)
[2022-09-17] MEDS ORDERED: predniSONE 20 MG Tab PO SCH (09:00)
[2022-09-17] MEDS: Apixaban 2.5 MG Tab PO SCH ×2 (09:49→20:21)
[2022-09-17] MEDS: Fenofibrate,Micronized 134 MG Cap PO SCH (09:50)
[2022-09-17] MEDS: predniSONE 40 MG, predniSONE 10 MG PO SCH ×2 (09:50)
[2022-09-17] MEDS: FLUoxetine 20 MG Cap PO SCH (09:50)
[2022-09-17] MEDS: Multivitamins with Iron/Calcium/Folic Acid/Minerals Tab PO SCH (09:50)
[2022-09-17] MEDS: Gabapentin 400 MG Cap PO SCH ×3 (09:51→20:22)
[2022-09-17] MEDS: Metoprolol Succinate 25 MG Tab.ER PO SCH (09:51)
[2022-09-17] MEDS: Furosemide 20 MG Tab PO SCH (09:51)
[2022-09-17] MEDS: Fish Oil/Omega-3 Fatty Acids 1 Gm Cap PO SCH ×2 (09:52→20:22)
[2022-09-17] MEDS: Aspirin 81 MG Tab.EC PO SCH (09:52)
[2022-09-17] MEDS: Cholecalciferol (Vitamin D3) 25 MCG Tab PO SCH (09:52)
[2022-09-17] MEDS: Baclofen 10 MG Tab PO SCH ×2 (09:52→20:22)
[2022-09-17] MEDS: Ferrous Sulfate 325 MG Tab PO SCH (09:56)
[2022-09-17] MEDS: Diclofenac Sodium 1% Gel 100 GM Tube TOP SCH ×2 (09:57→20:25)
[2022-09-17] MEDS: Insulin Glarg,Human.Rec.Analog 100 Unit/ML SUBCUT SCH (10:03)
[2022-09-17] MEDS: Insulin Lispro 100 Units/ML 3 ML Vial SUBCUT SCH ×2 (10:04→18:07)
[2022-09-17] MEDS: Melatonin 3 MG Tab PO SCH (20:22)
[2022-09-18] MEDS: Pantoprazole 40 MG Tab.CR PO SCH (06:30)
[2022-09-18] MEDS: Budesonide 0.5 MG/2 ML Neb Susp NEB SCH ×2 (06:30→20:12)
[2022-09-18] MEDS: Albuterol/Ipratropium 3.0-0.5 MG/3 ML Neb Soln NEB SCH ×2 (06:30→20:12)
[2022-09-18] MEDS ORDERED: predniSONE 10 MG Tab ONE (07:35)
[2022-09-18] MEDS: Gabapentin 400 MG Cap PO SCH ×4 (07:36→20:12)
[2022-09-18] MEDS: FLUoxetine 20 MG Cap PO SCH ×2 (07:37→10:34)
[2022-09-18] MEDS: Baclofen 10 MG Tab PO SCH ×3 (07:37→20:13)
[2022-09-18] MEDS: Fish Oil/Omega-3 Fatty Acids 1 Gm Cap PO SCH ×3 (07:37→20:13)
[2022-09-18] MEDS: Sulfamethoxazole/Trimethoprim 800-160 MG Tab PO SCH ×2 (07:37→10:35)
[2022-09-18] MEDS: Furosemide 20 MG Tab PO SCH ×2 (07:38→10:33)
[2022-09-18] MEDS: Multivitamins with Iron/Calcium/Folic Acid/Minerals Tab PO SCH ×2 (07:39→10:35)
[2022-09-18] MEDS: Cholecalciferol (Vitamin D3) 25 MCG Tab PO SCH ×2 (07:39→10:36)
[2022-09-18] MEDS: Apixaban 2.5 MG Tab PO SCH ×3 (07:39→20:13)
[2022-09-18] MEDS: Fenofibrate,Micronized 134 MG Cap PO SCH ×2 (07:39→10:31)
[2022-09-18] MEDS: Aspirin 81 MG Tab.EC PO SCH ×2 (07:39→10:32)
[2022-09-18] MEDS: Metoprolol Succinate 25 MG Tab.ER PO SCH ×2 (07:40→10:36)
[2022-09-18] MEDS: predniSONE 40 MG, predniSONE 10 MG PO SCH ×4 (07:42→10:33)
[2022-09-18] MEDS: Insulin Glarg,Human.Rec.Analog 100 Unit/ML SUBCUT SCH ×2 (07:49→10:32)
[2022-09-18] MEDS: Insulin Lispro 100 Units/ML 3 ML Vial SUBCUT SCH ×3 (07:50→17:58)
[2022-09-18] MEDS: Diclofenac Sodium 1% Gel 100 GM Tube TOP SCH ×2 (10:36→20:13)
[2022-09-18] MEDS: Acetaminophen 500 MG Tab PO PRN (10:54)
[2022-09-18] MEDS: Melatonin 3 MG Tab PO SCH (20:13)
[2022-09-19] MEDS: Budesonide 0.5 MG/2 ML Neb Susp NEB SCH ×2 (05:59→20:15)
[2022-09-19] MEDS: Pantoprazole 40 MG Tab.CR PO SCH (05:59)
[2022-09-19] MEDS: Albuterol/Ipratropium 3.0-0.5 MG/3 ML Neb Soln NEB SCH ×2 (05:59→20:15)
[2022-09-19] MEDS: Fenofibrate,Micronized 134 MG Cap PO SCH (09:13)
[2022-09-19] MEDS: predniSONE 40 MG, predniSONE 10 MG PO SCH ×2 (09:13)
[2022-09-19] MEDS: Multivitamins with Iron/Calcium/Folic Acid/Minerals Tab PO SCH (09:14)
[2022-09-19] MEDS: Apixaban 2.5 MG Tab PO SCH ×2 (09:14→20:15)
[2022-09-19] MEDS: FLUoxetine 20 MG Cap PO SCH (09:14)
[2022-09-19] MEDS: Cholecalciferol (Vitamin D3) 25 MCG Tab PO SCH (09:15)
[2022-09-19] MEDS: Gabapentin 400 MG Cap PO SCH ×3 (09:15→20:15)
[2022-09-19] MEDS: Fish Oil/Omega-3 Fatty Acids 1 Gm Cap PO SCH ×2 (09:15→20:16)
[2022-09-19] MEDS: Metoprolol Succinate 25 MG Tab.ER PO SCH (09:16)
[2022-09-19] MEDS: Aspirin 81 MG Tab.EC PO SCH (09:16)
[2022-09-19] MEDS: Furosemide 20 MG Tab PO SCH (09:18)
[2022-09-19] MEDS: Baclofen 10 MG Tab PO SCH ×2 (09:18→20:16)
[2022-09-19] MEDS: Diclofenac Sodium 1% Gel 100 GM Tube TOP SCH ×2 (09:18→20:16)
[2022-09-19] MEDS: Insulin Glarg,Human.Rec.Analog 100 Unit/ML SUBCUT SCH (09:19)
[2022-09-19] MEDS: Insulin Lispro 100 Units/ML 3 ML Vial SUBCUT SCH ×2 (09:22→18:35)
[2022-09-19] MEDS: Ferrous Sulfate 325 MG Tab PO SCH (09:25)
[2022-09-19] MEDS: Acetaminophen 500 MG Tab PO PRN (11:38)
[2022-09-19] MEDS: Melatonin 3 MG Tab PO SCH (20:15)
[2022-09-20] MEDS: Albuterol/Ipratropium 3.0-0.5 MG/3 ML Neb Soln NEB SCH (06:14)
[2022-09-20] MEDS: Budesonide 0.5 MG/2 ML Neb Susp NEB SCH (06:14)
[2022-09-20] MEDS: Pantoprazole 40 MG Tab.CR PO SCH (06:14)
[2022-09-20] MEDS ORDERED: Menthol/Zinc Oxide Ointment 3.5 GM Tube TOP PRN (07:54)
[2022-09-20] MEDS: Insulin Lispro 100 Units/ML 3 ML Vial SUBCUT SCH (08:19)
[2022-09-20] MEDS: Insulin Glarg,Human.Rec.Analog 100 Unit/ML SUBCUT SCH (08:28)
[2022-09-20] MEDS: predniSONE 40 MG, predniSONE 10 MG PO SCH ×2 (08:31)
[2022-09-20] MEDS: Metoprolol Succinate 25 MG Tab.ER PO SCH (08:31)
[2022-09-20] MEDS: Baclofen 10 MG Tab PO SCH (08:34)
[2022-09-20] MEDS: Sulfamethoxazole/Trimethoprim 800-160 MG Tab PO SCH (08:35)
[2022-09-20] MEDS: Fish Oil/Omega-3 Fatty Acids 1 Gm Cap PO SCH (08:35)
[2022-09-20] MEDS: Gabapentin 400 MG Cap PO SCH (08:35)
[2022-09-20] MEDS: Fenofibrate,Micronized 134 MG Cap PO SCH (08:35)
[2022-09-20] MEDS: Furosemide 20 MG Tab PO SCH (08:36)
[2022-09-20] MEDS: Cholecalciferol (Vitamin D3) 25 MCG Tab PO SCH (08:37)
[2022-09-20] MEDS: Apixaban 2.5 MG Tab PO SCH (08:37)
[2022-09-20] MEDS: Multivitamins with Iron/Calcium/Folic Acid/Minerals Tab PO SCH (08:37)
[2022-09-20] MEDS: FLUoxetine 20 MG Cap PO SCH (08:38)
[2022-09-20] MEDS: Aspirin 81 MG Tab.EC PO SCH (08:38)
[2022-09-20] MEDS: Diclofenac Sodium 1% Gel 100 GM Tube TOP SCH (08:38)
[2022-09-20 08:39] VITALS: BP 117/50; PULSE 87
[2022-09-20] MEDS: Acetaminophen 500 MG Tab PO PRN (10:59)
[2022-09-24] MEDS ORDERED: predniSONE 20 MG Tab PO SCH (09:00)
== END 2022-09-20 11:30 | disposition home health service (06) | DRG 947 ==
LOC: VM.MS 14:03
PROVIDERS: ADMIT Family Medicine; ATTEND Family Medicine
DX: R53.1 Weakness (principal); J18.9 Pneumonia, unspecified organism; J80 Acute respiratory distress syndrome; J44.1 Chronic obstructive pulmonary disease with (acute) exacerbation; J44.0 Chronic obstructive pulmonary disease with (acute) lower respiratory infection; I48.20 Chronic atrial fibrillation, unspecified; I50.32 Chronic diastolic (congestive) heart failure; E87.1 Hypo-osmolality and hyponatremia; E11.9 Type 2 diabetes mellitus without complications; G89.29 Other chronic pain; M54.59 Other low back pain; F41.9 Anxiety disorder, unspecified; I11.0 Hypertensive heart disease with heart failure; I27.20 Pulmonary hypertension, unspecified; Z66 Do not resuscitate; E87.6 Hypokalemia; E78.00 Pure hypercholesterolemia, unspecified; R41.0 Disorientation, unspecified; Z79.899 Other long term (current) drug therapy; Z79.84 Long term (current) use of oral hypoglycemic drugs; Z79.01 Long term (current) use of anticoagulants; Z79.52 Long term (current) use of systemic steroids
CPT/HCPCS: 36415; 80048; 81003; 82947; 83880; 85025; 94640; 94760; 95851-GO; 97110-GP; 97116-GP; 97161-GP; 97165-GO; 97535-GO; A9270-GY; J1815-GY; J7512; J7620-GY

== ENCOUNTER 2022-11-26 15:10 | Inpatient (IN) | payer MEDICARE, OTHER ==
[2022-11-26] MEDS ORDERED: Sodium Chloride 0.9% 10 ML Syringe FLUSH PRN (15:25)
[2022-11-26] MEDS ORDERED: cefTRIAXone 2 GM Vial IVPUSH ONE (15:50)
[2022-11-26] MEDS ORDERED: methylPREDNISolone Sodium Succinate 125 MG/2 ML SDV IV ONE (15:50)
[2022-11-26] MEDS ORDERED: Azithromycin 500 MG in Sodium Chloride 0.9% 250 ML IV ONE (15:51)
[2022-11-26] MEDS ORDERED: Furosemide 40 MG/4 ML VIAL IV ONE (15:52)
[2022-11-26 16:10] LABS: PCO2 ARTERIAL,POC 38 mmHg (35-48)
[2022-11-26 16:12] LABS: PTT,PARTIAL THROMBOPLSTIN TIME 30.1 SEC (20.5-30.9)
[2022-11-26 16:21] LABS: CHLORIDE,CL 95 mmol/L (98-107); SODIUM,NA 133 mmol/L (136-145)
[2022-11-26 16:24] LABS: ANION GAP 14.7 mmol/L (5-15); ESTIMATED GFR 47 mL/min (>=60)
[2022-11-26 16:44] LABS: CORONAVIRUS COVID-19 NAA NEGATIVE (NEGATIVE); RESPIRATORY SYNCYTIAL VIR NAA NEGATIVE (NEGATIVE)
[2022-11-26] MEDS ORDERED: Ondansetron 4 MG/2 ML SDV IV PRN (17:48)
[2022-11-26] MEDS ORDERED: Hypromellose 0.3% Ophth Soln 15 ML Bottle EYEBOTH PRN (17:57)
[2022-11-26] MEDS ORDERED: Albuterol 0.083% 2.5 MG/3 ML Neb Soln NEB PRN (17:57)
[2022-11-26] MEDS ORDERED: 50% Dextrose in Water 50 ML Syringe IVPUSH PRN (17:57)
[2022-11-26] MEDS ORDERED: Polyethylene Glycol 3350 Powder 17 GM Packet PO PRN (17:57)
[2022-11-26] MEDS ORDERED: Glucagon,Human Recombinant 1 MG Vial IM PRN ×2 (17:57)
[2022-11-26] MEDS ORDERED: HYDROMORPHONE SCH (18:00)
[2022-11-26] MEDS ORDERED: BUPIVACAINE SCH (18:00)
[2022-11-26] MEDS: Apixaban 2.5 MG Tab PO SCH (21:09)
[2022-11-26] MEDS: Melatonin 3 MG Tab PO SCH (21:10)
[2022-11-26] MEDS: Metoprolol Succinate 25 MG Tab.ER PO SCH (21:10)
[2022-11-26] MEDS: Gabapentin 300 MG Cap PO SCH (21:13)
[2022-11-26] MEDS: Budesonide 0.5 MG/2 ML Neb Susp NEB SCH (21:14)
[2022-11-26] MEDS: Albuterol/Ipratropium 3.0-0.5 MG/3 ML Neb Soln NEB SCH (21:14)
[2022-11-26] MEDS: Fish Oil/Omega-3 Fatty Acids 1 Gm Cap PO SCH (21:14)
[2022-11-26] MEDS: Baclofen 10 MG Tab PO SCH (21:14)
[2022-11-26] MEDS: Acetaminophen 325 MG Tab PO PRN (21:42)
[2022-11-27 07:02] LABS: ANION GAP 10.5 mmol/L (5-15)
[2022-11-27] MEDS: Budesonide 0.5 MG/2 ML Neb Susp NEB SCH ×2 (07:19→20:08)
[2022-11-27] MEDS: Albuterol/Ipratropium 3.0-0.5 MG/3 ML Neb Soln NEB SCH ×2 (07:19→20:07)
[2022-11-27] MEDS ORDERED: Glucagon,Human Recombinant 1 MG Vial IM PRN (08:13)
[2022-11-27] MEDS ORDERED: 50% Dextrose in Water 50 ML Syringe IVPUSH PRN (08:13)
[2022-11-27] MEDS ORDERED: LORazepam 0.5 MG Tab PO PRN (08:15)
[2022-11-27] MEDS: Gabapentin 300 MG Cap PO SCH ×3 (08:35→20:08)
[2022-11-27] MEDS: Apixaban 2.5 MG Tab PO SCH ×2 (08:35→20:10)
[2022-11-27] MEDS: Pantoprazole 40 MG Tab.CR PO SCH (08:35)
[2022-11-27] MEDS: FLUoxetine 20 MG Cap PO SCH (08:35)
[2022-11-27] MEDS: glipiZIDE 5 MG Tab.ER PO SCH (08:35)
[2022-11-27] MEDS: Fenofibrate,Micronized 134 MG Cap PO SCH (08:35)
[2022-11-27] MEDS: Azithromycin 250 MG Tab PO SCH (08:36)
[2022-11-27] MEDS: Fish Oil/Omega-3 Fatty Acids 1 Gm Cap PO SCH ×2 (08:36→20:08)
[2022-11-27] MEDS: methylPREDNISolone Sodium Succinate 125 MG/2 ML SDV IVPUSH SCH ×2 (08:44→20:11)
[2022-11-27] MEDS: Baclofen 10 MG Tab PO SCH ×2 (08:46→20:10)
[2022-11-27] MEDS: Aspirin 81 MG Tab.Chew PO SCH (08:46)
[2022-11-27] MEDS: Cholecalciferol (Vitamin D3) 25 MCG Tab PO SCH (08:46)
[2022-11-27] MEDS: amLODIPine 2.5 MG Tab PO SCH (08:47)
[2022-11-27] MEDS: Multivitamin Tab PO SCH (08:47)
[2022-11-27] MEDS: Furosemide 40 MG/4 ML VIAL IV SCH ×2 (08:50→13:44)
[2022-11-27] MEDS ORDERED: cefTRIAXone 2 GM Vial IVPUSH SCH (09:00)
[2022-11-27] MEDS ORDERED: Furosemide 40 MG/4 ML VIAL IV SCH (09:00)
[2022-11-27] MEDS ORDERED: Hydrochlorothiazide 25 MG Tab PO SCH (09:00)
[2022-11-27] MEDS ORDERED: methylPREDNISolone Sodium Succinate 125 MG/2 ML SDV IVPUSH SCH (09:00)
[2022-11-27] MEDS: Insulin Glarg,Human.Rec.Analog 100 Unit/ML SUBCUT SCH (09:03)
[2022-11-27] MEDS: Sulfamethoxazole/Trimethoprim 800-160 MG Tab PO SCH (09:08)
[2022-11-27] MEDS: Ferrous Sulfate 325 MG Tab PO SCH (09:08)
[2022-11-27] MEDS: Insulin Lispro 100 Units/ML 3 ML Vial SUBCUT SCH ×4 (09:11→20:14)
[2022-11-27] MEDS: Acetaminophen 325 MG Tab PO PRN (17:42)
[2022-11-27] MEDS: Melatonin 3 MG Tab PO SCH (20:08)
[2022-11-27] MEDS: Metoprolol Succinate 25 MG Tab.ER PO SCH ×2 (20:09→21:38)
[2022-11-28] MEDS: Budesonide 0.5 MG/2 ML Neb Susp NEB SCH ×2 (07:05→20:01)
[2022-11-28] MEDS: Albuterol/Ipratropium 3.0-0.5 MG/3 ML Neb Soln NEB SCH ×2 (07:05→20:01)
[2022-11-28 07:20] LABS: ANION GAP 13.9 mmol/L (5-15)
[2022-11-28] MEDS: Gabapentin 300 MG Cap PO SCH ×3 (08:22→19:59)
[2022-11-28] MEDS: Fish Oil/Omega-3 Fatty Acids 1 Gm Cap PO SCH ×2 (08:23→20:00)
[2022-11-28] MEDS: glipiZIDE 5 MG Tab.ER PO SCH (08:23)
[2022-11-28] MEDS: Cholecalciferol (Vitamin D3) 25 MCG Tab PO SCH (08:23)
[2022-11-28] MEDS: Azithromycin 250 MG Tab PO SCH (08:23)
[2022-11-28] MEDS: Apixaban 2.5 MG Tab PO SCH ×2 (08:23→20:00)
[2022-11-28] MEDS: Fenofibrate,Micronized 134 MG Cap PO SCH (08:23)
[2022-11-28] MEDS: Pantoprazole 40 MG Tab.CR PO SCH (08:23)
[2022-11-28] MEDS: FLUoxetine 20 MG Cap PO SCH (08:23)
[2022-11-28] MEDS: Baclofen 10 MG Tab PO SCH ×2 (08:24→20:01)
[2022-11-28] MEDS: Aspirin 81 MG Tab.Chew PO SCH (08:24)
[2022-11-28] MEDS: Acetaminophen 325 MG Tab PO PRN ×3 (08:24→17:44)
[2022-11-28] MEDS: amLODIPine 2.5 MG Tab PO SCH (08:24)
[2022-11-28] MEDS: Multivitamin Tab PO SCH (08:24)
[2022-11-28] MEDS: methylPREDNISolone Sodium Succinate 125 MG/2 ML SDV IVPUSH SCH ×2 (08:25→20:01)
[2022-11-28] MEDS: Furosemide 40 MG/4 ML VIAL IV SCH ×2 (08:28→13:54)
[2022-11-28] MEDS: Insulin Glarg,Human.Rec.Analog 100 Unit/ML SUBCUT SCH (08:32)
[2022-11-28] MEDS: Insulin Lispro 100 Units/ML 3 ML Vial SUBCUT SCH ×4 (08:33→20:18)
[2022-11-28] MEDS: Magnesium Oxide 400 MG Tab PO SCH (08:37)
[2022-11-28] MEDS: Cefuroxime 250 MG Tab PO SCH ×2 (08:37→20:01)
[2022-11-28] MEDS: Metoprolol Succinate 25 MG Tab.ER PO SCH (20:00)
[2022-11-28] MEDS: Melatonin 3 MG Tab PO SCH (20:00)
[2022-11-29] MEDS: Budesonide 0.5 MG/2 ML Neb Susp NEB SCH (06:11)
[2022-11-29] MEDS: Albuterol/Ipratropium 3.0-0.5 MG/3 ML Neb Soln NEB SCH (06:11)
[2022-11-29] MEDS: Insulin Glarg,Human.Rec.Analog 100 Unit/ML SUBCUT SCH (08:47)
[2022-11-29] MEDS: Insulin Lispro 100 Units/ML 3 ML Vial SUBCUT SCH (08:49)
[2022-11-29] MEDS: Azithromycin 250 MG Tab PO SCH (08:50)
[2022-11-29] MEDS: Aspirin 81 MG Tab.Chew PO SCH (08:50)
[2022-11-29] MEDS: Multivitamin Tab PO SCH (08:51)
[2022-11-29] MEDS: Pantoprazole 40 MG Tab.CR PO SCH (08:51)
[2022-11-29] MEDS: Baclofen 10 MG Tab PO SCH (08:51)
[2022-11-29] MEDS: Cholecalciferol (Vitamin D3) 25 MCG Tab PO SCH (08:51)
[2022-11-29] MEDS: FLUoxetine 20 MG Cap PO SCH (08:51)
[2022-11-29] MEDS: Magnesium Oxide 400 MG Tab PO SCH (08:51)
[2022-11-29] MEDS: Apixaban 2.5 MG Tab PO SCH (08:51)
[2022-11-29] MEDS: Fish Oil/Omega-3 Fatty Acids 1 Gm Cap PO SCH (08:51)
[2022-11-29] MEDS: glipiZIDE 5 MG Tab.ER PO SCH (08:51)
[2022-11-29] MEDS: Cefuroxime 250 MG Tab PO SCH (08:51)
[2022-11-29] MEDS: Fenofibrate,Micronized 134 MG Cap PO SCH (08:51)
[2022-11-29] MEDS: amLODIPine 2.5 MG Tab PO SCH (08:52)
[2022-11-29] MEDS: Gabapentin 300 MG Cap PO SCH (08:52)
[2022-11-29] MEDS ORDERED: Furosemide 40 MG Tab PO SCH (09:00)
[2022-11-29] MEDS: Sulfamethoxazole/Trimethoprim 800-160 MG Tab PO SCH (09:00)
[2022-11-29] MEDS ORDERED: predniSONE 20 MG Tab PO SCH (09:00)
[2022-11-29] MEDS: Ferrous Sulfate 325 MG Tab PO SCH (09:01)
[2022-11-29 10:18] VITALS: BP 122/56; PULSE 73
[2022-11-29] MEDS ORDERED: metFORMIN 500 MG Tab PO SCH (18:00)
[2022-12-12] MEDS ORDERED: predniSONE 5 MG Tab PO SCH (09:00)
== END 2022-11-29 11:07 | disposition swing bed (61) | DRG 871 ==
LOC: VM.ED 15:10 → VM.MS 17:10
PROVIDERS: ADMIT Family Medicine; ATTEND Family Medicine
DX: A41.89 Other specified sepsis (principal); J18.9 Pneumonia, unspecified organism; J96.21 Acute and chronic respiratory failure with hypoxia; J44.0 Chronic obstructive pulmonary disease with (acute) lower respiratory infection; J44.1 Chronic obstructive pulmonary disease with (acute) exacerbation; I48.20 Chronic atrial fibrillation, unspecified; E11.52 Type 2 diabetes mellitus with diabetic peripheral angiopathy with gangrene; I96 Gangrene, not elsewhere classified; Z20.822 Contact with and (suspected) exposure to COVID-19; Z66 Do not resuscitate; R65.20 Severe sepsis without septic shock; F32.9 Major depressive disorder, single episode, unspecified; F41.9 Anxiety disorder, unspecified; M54.50 Low back pain, unspecified; G89.29 Other chronic pain; J84.10 Pulmonary fibrosis, unspecified; E83.42 Hypomagnesemia; I48.0 Paroxysmal atrial fibrillation; E78.00 Pure hypercholesterolemia, unspecified; G25.81 Restless legs syndrome; F11.90 Opioid use, unspecified, uncomplicated; I50.9 Heart failure, unspecified; I11.0 Hypertensive heart disease with heart failure; Z88.8 Allergy status to other drugs, medicaments and biological substances; Z79.84 Long term (current) use of oral hypoglycemic drugs; Z79.82 Long term (current) use of aspirin; Z79.4 Long term (current) use of insulin; Z79.899 Other long term (current) drug therapy; Z79.52 Long term (current) use of systemic steroids; Z87.891 Personal history of nicotine dependence; Z98.49 Cataract extraction status, unspecified eye; E11.40 Type 2 diabetes mellitus with diabetic neuropathy, unspecified; Z79.51 Long term (current) use of inhaled steroids; Z98.890 Other specified postprocedural states
CPT/HCPCS: 0241U; 36415; 36600; 70450; 71045; 80048; 80053; 81003; 82803; 82947; 83605; 83735; 83880; 84100; 84145; 84484; 85025; 85379; 85610; 85730; 86140; 87040; 93005; 93010; 94640; 94760; 95851-GO; 96365; 96375; 97110-GP; 97116-GP; 97161-GP; 97165-GO; 97535-GO; 99284; 99285-25; A9270-GY; J0456; J0696; J1815-GY; J1940; J2930; J7050; J7512; J7620-GY

== ENCOUNTER 2022-11-29 09:52 | Inpatient (IN) | payer MEDICARE, OTHER ==
[2022-11-29] MEDS ORDERED: 50% Dextrose in Water 50 ML Syringe IVPUSH PRN (10:32)
[2022-11-29] MEDS ORDERED: [UNRECOGNIZED DRUG - OTHER] SCH (10:32)
[2022-11-29] MEDS ORDERED: Sodium Chloride 0.9% 10 ML Syringe FLUSH PRN (10:32)
[2022-11-29] MEDS ORDERED: Glucagon,Human Recombinant 1 MG Vial IM PRN ×2 (10:32)
[2022-11-29] MEDS ORDERED: Hypromellose 0.3% Ophth Soln 15 ML Bottle EYEBOTH PRN (10:32)
[2022-11-29] MEDS ORDERED: Albuterol 0.083% 2.5 MG/3 ML Neb Soln NEB PRN (10:32)
[2022-11-29] MEDS ORDERED: LORazepam 0.5 MG Tab PO PRN (10:32)
[2022-11-29] MEDS ORDERED: Ondansetron 4 MG/2 ML SDV IV PRN (10:32)
[2022-11-29] MEDS: Gabapentin 400 MG Cap PO SCH ×2 (12:29→20:11)
[2022-11-29] MEDS: Acetaminophen 325 MG Tab PO PRN ×2 (12:29→17:39)
[2022-11-29] MEDS: Insulin Lispro 100 Units/ML 3 ML Vial SUBCUT SCH ×3 (12:31→20:17)
[2022-11-29] MEDS: metFORMIN 500 MG Tab PO SCH (17:40)
[2022-11-29] MEDS: Apixaban 2.5 MG Tab PO SCH (20:09)
[2022-11-29] MEDS: Fish Oil/Omega-3 Fatty Acids 1 Gm Cap PO SCH (20:09)
[2022-11-29] MEDS: Budesonide 0.5 MG/2 ML Neb Susp NEB SCH (20:09)
[2022-11-29] MEDS: Albuterol/Ipratropium 3.0-0.5 MG/3 ML Neb Soln NEB SCH (20:09)
[2022-11-29] MEDS: Metoprolol Succinate 25 MG Tab.ER PO SCH (20:10)
[2022-11-29] MEDS: Melatonin 3 MG Tab PO SCH (20:11)
[2022-11-29] MEDS: Cefuroxime 250 MG Tab PO SCH (20:12)
[2022-11-29] MEDS: Baclofen 10 MG Tab PO SCH (20:12)
[2022-11-30] MEDS: Budesonide 0.5 MG/2 ML Neb Susp NEB SCH ×2 (06:09→20:14)
[2022-11-30] MEDS: Albuterol/Ipratropium 3.0-0.5 MG/3 ML Neb Soln NEB SCH ×2 (06:09→20:14)
[2022-11-30] MEDS: Cefuroxime 250 MG Tab PO SCH ×2 (08:36→20:16)
[2022-11-30] MEDS: Apixaban 2.5 MG Tab PO SCH ×2 (08:37→20:15)
[2022-11-30] MEDS: Fish Oil/Omega-3 Fatty Acids 1 Gm Cap PO SCH ×2 (08:37→20:15)
[2022-11-30] MEDS: Gabapentin 400 MG Cap PO SCH ×3 (08:39→20:14)
[2022-11-30] MEDS: Cholecalciferol (Vitamin D3) 25 MCG Tab PO SCH (08:40)
[2022-11-30] MEDS: Baclofen 10 MG Tab PO SCH ×2 (08:41→20:16)
[2022-11-30] MEDS: amLODIPine 2.5 MG Tab PO SCH (08:42)
[2022-11-30] MEDS: Aspirin 81 MG Tab.EC PO SCH (08:42)
[2022-11-30] MEDS: Furosemide 40 MG Tab PO SCH (08:59)
[2022-11-30] MEDS: Fenofibrate,Micronized 134 MG Cap PO SCH (08:59)
[2022-11-30] MEDS: FLUoxetine 20 MG Cap PO SCH (09:00)
[2022-11-30] MEDS ORDERED: Azithromycin 250 MG Tab PO SCH (09:00)
[2022-11-30] MEDS: glipiZIDE 5 MG Tab.ER PO SCH (09:24)
[2022-11-30] MEDS: metFORMIN 500 MG Tab PO SCH ×2 (09:25→17:43)
[2022-11-30] MEDS: Insulin Lispro 100 Units/ML 3 ML Vial SUBCUT SCH ×4 (09:29→20:18)
[2022-11-30] MEDS: Pantoprazole 40 MG Tab.CR PO SCH (09:30)
[2022-11-30] MEDS: predniSONE 20 MG Tab PO SCH (09:31)
[2022-11-30] MEDS: Magnesium Oxide 400 MG Tab PO SCH (09:32)
[2022-11-30] MEDS: Multivitamin Tab PO SCH (09:32)
[2022-11-30] MEDS: Insulin Glarg,Human.Rec.Analog 100 Unit/ML SUBCUT SCH (09:36)
[2022-11-30] MEDS: Acetaminophen 325 MG Tab PO PRN (10:05)
[2022-11-30] MEDS: Polyethylene Glycol 3350 Powder 17 GM Packet PO PRN (13:48)
[2022-11-30] MEDS: Metoprolol Succinate 25 MG Tab.ER PO SCH (20:15)
[2022-11-30] MEDS: Melatonin 3 MG Tab PO SCH (20:16)
[2022-12-01] MEDS: Budesonide 0.5 MG/2 ML Neb Susp NEB SCH ×2 (05:59→20:03)
[2022-12-01] MEDS: Albuterol/Ipratropium 3.0-0.5 MG/3 ML Neb Soln NEB SCH ×2 (05:59→20:03)
[2022-12-01] MEDS: Apixaban 2.5 MG Tab PO SCH ×2 (09:46→20:05)
[2022-12-01] MEDS: Gabapentin 400 MG Cap PO SCH ×3 (09:46→20:04)
[2022-12-01] MEDS: metFORMIN 500 MG Tab PO SCH ×2 (09:47→17:32)
[2022-12-01] MEDS: glipiZIDE 5 MG Tab.ER PO SCH (09:47)
[2022-12-01] MEDS: Fish Oil/Omega-3 Fatty Acids 1 Gm Cap PO SCH ×2 (09:47→20:05)
[2022-12-01] MEDS: FLUoxetine 20 MG Cap PO SCH (09:47)
[2022-12-01] MEDS: Fenofibrate,Micronized 134 MG Cap PO SCH (09:47)
[2022-12-01] MEDS: Cholecalciferol (Vitamin D3) 25 MCG Tab PO SCH (09:48)
[2022-12-01] MEDS: Furosemide 40 MG Tab PO SCH (09:49)
[2022-12-01] MEDS: Magnesium Oxide 400 MG Tab PO SCH (09:50)
[2022-12-01] MEDS: Pantoprazole 40 MG Tab.CR PO SCH (09:50)
[2022-12-01] MEDS: Cefuroxime 250 MG Tab PO SCH ×2 (09:51→20:05)
[2022-12-01] MEDS: predniSONE 20 MG Tab PO SCH (09:51)
[2022-12-01] MEDS: Baclofen 10 MG Tab PO SCH ×2 (09:51→20:04)
[2022-12-01] MEDS: Multivitamin Tab PO SCH (09:52)
[2022-12-01] MEDS: Aspirin 81 MG Tab.EC PO SCH (09:52)
[2022-12-01] MEDS: Ferrous Sulfate 325 MG Tab PO SCH (09:52)
[2022-12-01] MEDS: Insulin Lispro 100 Units/ML 3 ML Vial SUBCUT SCH ×4 (10:01→20:08)
[2022-12-01] MEDS: amLODIPine 2.5 MG Tab PO SCH (10:04)
[2022-12-01] MEDS: Insulin Glarg,Human.Rec.Analog 100 Unit/ML SUBCUT SCH (10:14)
[2022-12-01] MEDS: Polyethylene Glycol 3350 Powder 17 GM Packet PO PRN (10:50)
[2022-12-01] MEDS: Acetaminophen 325 MG Tab PO PRN (12:36)
[2022-12-01] MEDS: Melatonin 3 MG Tab PO SCH (20:04)
[2022-12-01] MEDS: Metoprolol Succinate 25 MG Tab.ER PO SCH (20:04)
[2022-12-02] MEDS: Albuterol/Ipratropium 3.0-0.5 MG/3 ML Neb Soln NEB SCH ×2 (07:16→20:05)
[2022-12-02] MEDS: Budesonide 0.5 MG/2 ML Neb Susp NEB SCH ×2 (07:16→20:05)
[2022-12-02 07:22] LABS: ANION GAP 9.4 mmol/L (5-15)
[2022-12-02] MEDS: Multivitamin Tab PO SCH (08:44)
[2022-12-02] MEDS: Pantoprazole 40 MG Tab.CR PO SCH (08:44)
[2022-12-02] MEDS: Fenofibrate,Micronized 134 MG Cap PO SCH (08:44)
[2022-12-02] MEDS: Aspirin 81 MG Tab.EC PO SCH (08:45)
[2022-12-02] MEDS: Baclofen 10 MG Tab PO SCH ×2 (08:46→20:06)
[2022-12-02] MEDS: Cholecalciferol (Vitamin D3) 25 MCG Tab PO SCH (08:46)
[2022-12-02] MEDS: Furosemide 40 MG Tab PO SCH (08:46)
[2022-12-02] MEDS: Magnesium Oxide 400 MG Tab PO SCH (08:47)
[2022-12-02] MEDS: glipiZIDE 5 MG Tab.ER PO SCH (08:47)
[2022-12-02] MEDS: FLUoxetine 20 MG Cap PO SCH (08:48)
[2022-12-02] MEDS: Cefuroxime 250 MG Tab PO SCH ×2 (08:49→20:06)
[2022-12-02] MEDS: metFORMIN 500 MG Tab PO SCH ×2 (08:49→17:10)
[2022-12-02] MEDS: predniSONE 20 MG Tab PO SCH (08:50)
[2022-12-02] MEDS: Fish Oil/Omega-3 Fatty Acids 1 Gm Cap PO SCH ×2 (08:50→20:06)
[2022-12-02] MEDS: Sulfamethoxazole/Trimethoprim 800-160 MG Tab PO SCH (08:52)
[2022-12-02] MEDS: Gabapentin 400 MG Cap PO SCH ×3 (08:54→20:05)
[2022-12-02] MEDS: Apixaban 2.5 MG Tab PO SCH ×2 (08:54→20:06)
[2022-12-02] MEDS: Insulin Glarg,Human.Rec.Analog 100 Unit/ML SUBCUT SCH (09:09)
[2022-12-02] MEDS: Insulin Lispro 100 Units/ML 3 ML Vial SUBCUT SCH ×4 (09:16→20:07)
[2022-12-02] MEDS: amLODIPine 2.5 MG Tab PO SCH (09:23)
[2022-12-02] MEDS: Magnesium Hydroxide 400 MG/5 ML Susp 30 ML Cup PO PRN (09:32)
[2022-12-02] MEDS: Acetaminophen 325 MG Tab PO PRN ×2 (11:25→17:40)
[2022-12-02] MEDS: Polyethylene Glycol 3350 Powder 17 GM Packet PO PRN (13:11)
[2022-12-02] MEDS: Melatonin 3 MG Tab PO SCH (20:06)
[2022-12-02] MEDS: Metoprolol Succinate 25 MG Tab.ER PO SCH (20:07)
[2022-12-03] MEDS: Budesonide 0.5 MG/2 ML Neb Susp NEB SCH ×2 (06:34→20:01)
[2022-12-03] MEDS: Albuterol/Ipratropium 3.0-0.5 MG/3 ML Neb Soln NEB SCH ×2 (06:34→20:01)
[2022-12-03] MEDS: Acetaminophen 325 MG Tab PO PRN ×3 (08:29→18:34)
[2022-12-03] MEDS: Apixaban 2.5 MG Tab PO SCH ×2 (08:34→20:01)
[2022-12-03] MEDS: Fenofibrate,Micronized 134 MG Cap PO SCH (08:34)
[2022-12-03] MEDS: Baclofen 10 MG Tab PO SCH ×2 (08:34→20:01)
[2022-12-03] MEDS: FLUoxetine 20 MG Cap PO SCH (08:35)
[2022-12-03] MEDS: Multivitamin Tab PO SCH (08:36)
[2022-12-03] MEDS: Cefuroxime 250 MG Tab PO SCH (08:36)
[2022-12-03] MEDS: Pantoprazole 40 MG Tab.CR PO SCH (08:36)
[2022-12-03] MEDS: predniSONE 20 MG Tab PO SCH (08:39)
[2022-12-03] MEDS: glipiZIDE 5 MG Tab.ER PO SCH (08:41)
[2022-12-03] MEDS: Cholecalciferol (Vitamin D3) 25 MCG Tab PO SCH (08:41)
[2022-12-03] MEDS: Gabapentin 400 MG Cap PO SCH ×3 (08:43→20:01)
[2022-12-03] MEDS: Fish Oil/Omega-3 Fatty Acids 1 Gm Cap PO SCH ×2 (08:43→20:01)
[2022-12-03] MEDS: metFORMIN 500 MG Tab PO SCH ×2 (08:44→18:33)
[2022-12-03] MEDS: Aspirin 81 MG Tab.EC PO SCH (08:45)
[2022-12-03] MEDS: Magnesium Oxide 400 MG Tab PO SCH (08:46)
[2022-12-03] MEDS: Furosemide 40 MG Tab PO SCH (08:48)
[2022-12-03] MEDS: Ferrous Sulfate 325 MG Tab PO SCH (08:48)
[2022-12-03] MEDS: Insulin Glarg,Human.Rec.Analog 100 Unit/ML SUBCUT SCH (09:09)
[2022-12-03] MEDS: Insulin Lispro 100 Units/ML 3 ML Vial SUBCUT SCH ×3 (09:14→18:32)
[2022-12-03] MEDS ORDERED: Glucagon,Human Recombinant 1 MG Vial IM PRN (12:45)
[2022-12-03] MEDS ORDERED: 50% Dextrose in Water 50 ML Syringe IVPUSH PRN (12:45)
[2022-12-03] MEDS: Metoprolol Succinate 25 MG Tab.ER PO SCH (20:00)
[2022-12-03] MEDS: Melatonin 3 MG Tab PO SCH (20:01)
[2022-12-04] MEDS: Budesonide 0.5 MG/2 ML Neb Susp NEB SCH ×2 (06:29→20:18)
[2022-12-04] MEDS: Albuterol/Ipratropium 3.0-0.5 MG/3 ML Neb Soln NEB SCH ×2 (06:29→20:22)
[2022-12-04] MEDS: Fish Oil/Omega-3 Fatty Acids 1 Gm Cap PO SCH ×2 (08:20→20:13)
[2022-12-04] MEDS: FLUoxetine 20 MG Cap PO SCH (08:20)
[2022-12-04] MEDS: Furosemide 40 MG Tab PO SCH (08:20)
[2022-12-04] MEDS: Cholecalciferol (Vitamin D3) 25 MCG Tab PO SCH (08:21)
[2022-12-04] MEDS: Apixaban 2.5 MG Tab PO SCH ×2 (08:21→20:13)
[2022-12-04] MEDS: Aspirin 81 MG Tab.EC PO SCH (08:21)
[2022-12-04] MEDS: metFORMIN 500 MG Tab PO SCH ×2 (08:22→17:46)
[2022-12-04] MEDS: glipiZIDE 5 MG Tab.ER PO SCH (08:22)
[2022-12-04] MEDS: Magnesium Oxide 400 MG Tab PO SCH (08:22)
[2022-12-04] MEDS: Sulfamethoxazole/Trimethoprim 800-160 MG Tab PO SCH (08:22)
[2022-12-04] MEDS: Multivitamin Tab PO SCH (08:23)
[2022-12-04] MEDS: predniSONE 20 MG Tab PO SCH (08:23)
[2022-12-04] MEDS: Baclofen 10 MG Tab PO SCH ×2 (08:23→20:13)
[2022-12-04] MEDS: Gabapentin 400 MG Cap PO SCH ×3 (08:24→20:13)
[2022-12-04] MEDS: Fenofibrate,Micronized 134 MG Cap PO SCH (08:24)
[2022-12-04] MEDS: Pantoprazole 40 MG Tab.CR PO SCH (08:24)
[2022-12-04] MEDS: Insulin Glarg,Human.Rec.Analog 100 Unit/ML SUBCUT SCH (08:27)
[2022-12-04] MEDS: Insulin Lispro 100 Units/ML 3 ML Vial SUBCUT SCH ×2 (08:30→17:40)
[2022-12-04] MEDS: Acetaminophen 325 MG Tab PO PRN ×2 (13:08→17:47)
[2022-12-04] MEDS: Menthol 10%/Methyl Salicylate 15% 85 GM Tube TOP PRN (16:13)
[2022-12-04] MEDS ORDERED: Menthol 10%/Methyl Salicylate 15% 85 GM Tube TOP SCH (17:00)
[2022-12-04] MEDS: Metoprolol Succinate 25 MG Tab.ER PO SCH (20:14)
[2022-12-04] MEDS: Melatonin 3 MG Tab PO SCH (20:18)
[2022-12-05] MEDS: Budesonide 0.5 MG/2 ML Neb Susp NEB SCH ×2 (06:42→20:16)
[2022-12-05] MEDS: Albuterol/Ipratropium 3.0-0.5 MG/3 ML Neb Soln NEB SCH ×2 (06:48→20:16)
[2022-12-05] MEDS: Acetaminophen 325 MG Tab PO PRN ×3 (08:26→20:39)
[2022-12-05] MEDS: predniSONE 20 MG Tab PO SCH (08:28)
[2022-12-05] MEDS: Magnesium Hydroxide 400 MG/5 ML Susp 30 ML Cup PO PRN (08:29)
[2022-12-05] MEDS: Gabapentin 400 MG Cap PO SCH ×3 (08:30→20:17)
[2022-12-05] MEDS: Aspirin 81 MG Tab.EC PO SCH (08:31)
[2022-12-05] MEDS: FLUoxetine 20 MG Cap PO SCH (08:31)
[2022-12-05] MEDS: Apixaban 2.5 MG Tab PO SCH ×2 (08:31→20:21)
[2022-12-05] MEDS: Multivitamin Tab PO SCH (08:31)
[2022-12-05] MEDS: Baclofen 10 MG Tab PO SCH ×2 (08:34→20:21)
[2022-12-05] MEDS: Magnesium Oxide 400 MG Tab PO SCH (08:34)
[2022-12-05] MEDS: Ferrous Sulfate 325 MG Tab PO SCH (08:35)
[2022-12-05] MEDS: Fenofibrate,Micronized 134 MG Cap PO SCH (08:35)
[2022-12-05] MEDS: Cholecalciferol (Vitamin D3) 25 MCG Tab PO SCH (08:35)
[2022-12-05] MEDS: Fish Oil/Omega-3 Fatty Acids 1 Gm Cap PO SCH ×2 (08:35→20:17)
[2022-12-05] MEDS: Furosemide 40 MG Tab PO SCH (08:38)
[2022-12-05] MEDS: metFORMIN 500 MG Tab PO SCH ×2 (08:42→17:39)
[2022-12-05] MEDS: glipiZIDE 5 MG Tab.ER PO SCH (08:43)
[2022-12-05] MEDS: Insulin Glarg,Human.Rec.Analog 100 Unit/ML SUBCUT SCH (08:45)
[2022-12-05] MEDS: Insulin Lispro 100 Units/ML 3 ML Vial SUBCUT SCH ×2 (08:57→17:34)
[2022-12-05] MEDS: Pantoprazole 40 MG Tab.CR PO SCH (08:59)
[2022-12-05] MEDS: Polyethylene Glycol 3350 Powder 17 GM Packet PO PRN (12:49)
[2022-12-05] MEDS: Metoprolol Succinate 25 MG Tab.ER PO SCH (20:19)
[2022-12-05] MEDS: Melatonin 3 MG Tab PO SCH (20:21)
[2022-12-06] MEDS: Acetaminophen 325 MG Tab PO PRN ×2 (03:53→07:58)
[2022-12-06] MEDS: Menthol 10%/Methyl Salicylate 15% 85 GM Tube TOP PRN (03:54)
[2022-12-06 06:35] VITALS: BP 116/81; PULSE 68
[2022-12-06] MEDS: Budesonide 0.5 MG/2 ML Neb Susp NEB SCH (07:10)
[2022-12-06] MEDS: Albuterol/Ipratropium 3.0-0.5 MG/3 ML Neb Soln NEB SCH (07:10)
[2022-12-06] MEDS: FLUoxetine 20 MG Cap PO SCH (08:57)
[2022-12-06] MEDS: Magnesium Oxide 400 MG Tab PO SCH (08:57)
[2022-12-06] MEDS: Apixaban 2.5 MG Tab PO SCH (08:57)
[2022-12-06] MEDS: Fenofibrate,Micronized 134 MG Cap PO SCH (08:57)
[2022-12-06] MEDS: glipiZIDE 5 MG Tab.ER PO SCH (08:58)
[2022-12-06] MEDS: Furosemide 40 MG Tab PO SCH (08:58)
[2022-12-06] MEDS: Sulfamethoxazole/Trimethoprim 800-160 MG Tab PO SCH (08:58)
[2022-12-06] MEDS: predniSONE 20 MG Tab PO SCH (08:58)
[2022-12-06] MEDS: Baclofen 10 MG Tab PO SCH (08:59)
[2022-12-06] MEDS: Aspirin 81 MG Tab.EC PO SCH (08:59)
[2022-12-06] MEDS: Cholecalciferol (Vitamin D3) 25 MCG Tab PO SCH (09:00)
[2022-12-06] MEDS: Gabapentin 400 MG Cap PO SCH (09:00)
[2022-12-06] MEDS: metFORMIN 500 MG Tab PO SCH (09:00)
[2022-12-06] MEDS: Multivitamin Tab PO SCH (09:00)
[2022-12-06] MEDS: Pantoprazole 40 MG Tab.CR PO SCH (09:00)
[2022-12-06] MEDS: Fish Oil/Omega-3 Fatty Acids 1 Gm Cap PO SCH (09:00)
[2022-12-06] MEDS: Magnesium Hydroxide 400 MG/5 ML Susp 30 ML Cup PO PRN (09:01)
[2022-12-06] MEDS: Polyethylene Glycol 3350 Powder 17 GM Packet PO PRN (09:01)
[2022-12-06] MEDS: Insulin Glarg,Human.Rec.Analog 100 Unit/ML SUBCUT SCH (09:01)
[2022-12-06] MEDS: Insulin Lispro 100 Units/ML 3 ML Vial SUBCUT SCH (09:05)
[2022-12-12] MEDS ORDERED: predniSONE 5 MG Tab PO SCH (09:00)
== END 2022-12-06 10:57 | disposition home health service (06) | DRG 947 ==
LOC: VM.MS 11:12
PROVIDERS: ADMIT Family Medicine; ATTEND Family Medicine
DX: R53.81 Other malaise (principal); J18.9 Pneumonia, unspecified organism; J96.11 Chronic respiratory failure with hypoxia; I96 Gangrene, not elsewhere classified; E11.52 Type 2 diabetes mellitus with diabetic peripheral angiopathy with gangrene; I50.9 Heart failure, unspecified; I48.0 Paroxysmal atrial fibrillation; Z66 Do not resuscitate; J44.9 Chronic obstructive pulmonary disease, unspecified; J84.10 Pulmonary fibrosis, unspecified; L89.150 Pressure ulcer of sacral region, unstageable; E11.622 Type 2 diabetes mellitus with other skin ulcer; E78.00 Pure hypercholesterolemia, unspecified; I11.0 Hypertensive heart disease with heart failure; F32.9 Major depressive disorder, single episode, unspecified; F41.9 Anxiety disorder, unspecified; D63.8 Anemia in other chronic diseases classified elsewhere; K59.00 Constipation, unspecified; Z88.8 Allergy status to other drugs, medicaments and biological substances; Z79.84 Long term (current) use of oral hypoglycemic drugs; Z79.82 Long term (current) use of aspirin; Z79.899 Other long term (current) drug therapy; Z79.52 Long term (current) use of systemic steroids
CPT/HCPCS: 36415; 80053; 82947; 83735; 83880; 85025; 86140; 94640; 94760; 95851-GO; 97110-GP; 97116-GP; 97535-GO; A9270-GY; J1815-GY; J7512; J7620-GY

== ENCOUNTER 2023-03-03 15:34 | Inpatient (IN) | payer MEDICARE, OTHER ==
[2023-03-03 16:15] LABS: SODIUM,NA 139 mmol/L (136-145)
[2023-03-03 16:16] LABS: CHLORIDE,CL 98 mmol/L (98-107); ESTIMATED GFR 41 mL/min (>=60)
[2023-03-03] MEDS ORDERED: Lactated Ringers 1,000 ML IV ONE (16:25)
[2023-03-03] MEDS ORDERED: VANCOmycin 1.5 GM/300 ML 1.5 GM in Premix Bag 1 BAG IV ONE (16:31)
[2023-03-03] MEDS ORDERED: Cefepime 2 GM Vial IVPUSH ONE (16:47)
[2023-03-03 17:33] LABS: CORONAVIRUS COVID-19 NAA NEGATIVE (NEGATIVE); RESPIRATORY SYNCYTIAL VIR NAA NEGATIVE (NEGATIVE)
[2023-03-03] MEDS ORDERED: Polyethylene Glycol 3350 Powder 17 GM Packet PO PRN (18:41)
[2023-03-03] MEDS ORDERED: Albuterol 0.083% 2.5 MG/3 ML Neb Soln NEB PRN (18:41)
[2023-03-03] MEDS ORDERED: Menthol 10%/Methyl Salicylate 15% 85 GM Tube TOP PRN (18:41)
[2023-03-03] MEDS ORDERED: Magnesium Hydroxide 400 MG/5 ML Susp 30 ML Cup PO PRN (18:41)
[2023-03-03] MEDS ORDERED: [UNRECOGNIZED DRUG - SUPPLY] SCH (18:45)
[2023-03-03] MEDS: Sodium Chloride 0.9% 1,000 ML IV SCH (20:00)
[2023-03-03] MEDS: Albuterol/Ipratropium 3.0-0.5 MG/3 ML Neb Soln NEB SCH (20:33)
[2023-03-03] MEDS: Apixaban 2.5 MG Tab PO SCH (20:33)
[2023-03-03] MEDS: Budesonide 0.5 MG/2 ML Neb Susp NEB SCH (20:33)
[2023-03-03] MEDS: Baclofen 10 MG Tab PO SCH (20:33)
[2023-03-03] MEDS: Metoprolol Succinate 25 MG Tab.ER PO SCH (20:33)
[2023-03-04] MEDS: Sodium Chloride 0.9% 1,000 ML IV SCH ×2 (06:18→11:08)
[2023-03-04 07:31] LABS: ANION GAP 12.3 mmol/L (5-15)
[2023-03-04] MEDS: Budesonide 0.5 MG/2 ML Neb Susp NEB SCH ×2 (08:10→20:49)
[2023-03-04] MEDS: Albuterol/Ipratropium 3.0-0.5 MG/3 ML Neb Soln NEB SCH ×2 (08:10→20:48)
[2023-03-04] MEDS ORDERED: Hypromellose 0.3% Ophth Soln 15 ML Bottle EYEBOTH PRN (09:25)
[2023-03-04] MEDS: Pantoprazole 40 MG Tab.CR PO SCH (09:37)
[2023-03-04] MEDS: predniSONE 20 MG Tab PO SCH (09:38)
[2023-03-04] MEDS: glipiZIDE 5 MG Tab.ER PO SCH (09:38)
[2023-03-04] MEDS: Magnesium Oxide 400 MG Tab PO SCH (09:38)
[2023-03-04] MEDS: Apixaban 2.5 MG Tab PO SCH ×2 (09:38→20:47)
[2023-03-04] MEDS: Aspirin 81 MG Tab.Chew PO SCH (09:39)
[2023-03-04] MEDS: Baclofen 10 MG Tab PO SCH ×2 (09:39→20:46)
[2023-03-04] MEDS: FLUoxetine 20 MG Cap PO SCH (09:39)
[2023-03-04] MEDS: Doxycycline Monohydrate 100 MG Cap PO SCH ×2 (09:46→20:46)
[2023-03-04] MEDS: guaiFENesin 600 MG Tab.ER PO SCH ×2 (09:47→20:46)
[2023-03-04] MEDS: Gabapentin 300 MG Cap PO SCH ×3 (09:47→20:46)
[2023-03-04] MEDS: amLODIPine 2.5 MG Tab PO SCH (10:22)
[2023-03-04] MEDS: Furosemide 20 MG Tab PO SCH (11:02)
[2023-03-04] MEDS: Acetaminophen 325 MG Tab PO PRN (13:27)
[2023-03-04] MEDS: Metoprolol Succinate 25 MG Tab.ER PO SCH (20:55)
[2023-03-04] MEDS ORDERED: Albuterol 0.083% 2.5 MG/3 ML Neb Soln NEB SCH (21:00)
[2023-03-04] MEDS ORDERED: Ipratropium 0.02% 0.5 MG/2.5 ML Neb Soln NEB SCH (21:00)
[2023-03-05] MEDS: Sodium Chloride 0.9% 1,000 ML IV SCH (01:31)
[2023-03-05] MEDS: Budesonide 0.5 MG/2 ML Neb Susp NEB SCH ×2 (07:15→22:12)
[2023-03-05] MEDS: Albuterol/Ipratropium 3.0-0.5 MG/3 ML Neb Soln NEB SCH ×2 (07:16→22:11)
[2023-03-05 07:23] LABS: ANION GAP 11.1 mmol/L (5-15)
[2023-03-05] MEDS: guaiFENesin 600 MG Tab.ER PO SCH ×2 (09:24→22:12)
[2023-03-05] MEDS: Pantoprazole 40 MG Tab.CR PO SCH (09:24)
[2023-03-05] MEDS: FLUoxetine 20 MG Cap PO SCH (09:24)
[2023-03-05] MEDS: Doxycycline Monohydrate 100 MG Cap PO SCH ×2 (09:25→22:11)
[2023-03-05] MEDS: Furosemide 20 MG Tab PO SCH (09:25)
[2023-03-05] MEDS: predniSONE 20 MG Tab PO SCH (09:25)
[2023-03-05] MEDS: Baclofen 10 MG Tab PO SCH ×2 (09:25→22:11)
[2023-03-05] MEDS: Apixaban 2.5 MG Tab PO SCH ×2 (09:26→22:11)
[2023-03-05] MEDS: Aspirin 81 MG Tab.Chew PO SCH (09:26)
[2023-03-05] MEDS: Gabapentin 300 MG Cap PO SCH ×3 (09:26→22:12)
[2023-03-05] MEDS: Magnesium Oxide 400 MG Tab PO SCH (09:26)
[2023-03-05] MEDS: glipiZIDE 5 MG Tab.ER PO SCH (09:26)
[2023-03-05] MEDS: amLODIPine 2.5 MG Tab PO SCH (09:28)
[2023-03-05 10:16] LABS: PCO2 ARTERIAL,POC 41 mmHg (35-48)
[2023-03-05] MEDS: Acetaminophen 325 MG Tab PO PRN (12:29)
[2023-03-05] MEDS ORDERED: Haloperidol Lactate 5 MG/ML SDV IM ONE (21:01)
[2023-03-05] MEDS: Metoprolol Succinate 25 MG Tab.ER PO SCH (22:12)
[2023-03-06] MEDS: Budesonide 0.5 MG/2 ML Neb Susp NEB SCH ×2 (07:05→20:34)
[2023-03-06] MEDS: Albuterol/Ipratropium 3.0-0.5 MG/3 ML Neb Soln NEB SCH ×2 (07:05→20:33)
[2023-03-06 07:10] LABS: ANION GAP 12.7 mmol/L (5-15)
[2023-03-06] MEDS ORDERED: methylPREDNISolone Sodium Succinate 125 MG/2 ML SDV IVPUSH SCH (09:45)
[2023-03-06] MEDS: Magnesium Oxide 400 MG Tab PO SCH (12:04)
[2023-03-06] MEDS: Pantoprazole 40 MG Tab.CR PO SCH (12:04)
[2023-03-06] MEDS: glipiZIDE 5 MG Tab.ER PO SCH (12:04)
[2023-03-06] MEDS: guaiFENesin 600 MG Tab.ER PO SCH ×2 (12:04→20:33)
[2023-03-06] MEDS: amLODIPine 2.5 MG Tab PO SCH (12:04)
[2023-03-06] MEDS: Apixaban 2.5 MG Tab PO SCH ×2 (12:05→20:33)
[2023-03-06] MEDS: Gabapentin 300 MG Cap PO SCH ×2 (12:05→20:32)
[2023-03-06] MEDS: Baclofen 10 MG Tab PO SCH ×2 (12:05→20:32)
[2023-03-06] MEDS: FLUoxetine 20 MG Cap PO SCH (12:05)
[2023-03-06] MEDS: Doxycycline Monohydrate 100 MG Cap PO SCH ×2 (12:06→20:32)
[2023-03-06] MEDS: Furosemide 20 MG Tab PO SCH (12:06)
[2023-03-06] MEDS: Aspirin 81 MG Tab.Chew PO SCH (12:06)
[2023-03-06] MEDS: Metoprolol Succinate 25 MG Tab.ER PO SCH (20:31)
[2023-03-06] MEDS: Acetaminophen 325 MG Tab PO PRN (20:36)
[2023-03-07] MEDS: Budesonide 0.5 MG/2 ML Neb Susp NEB SCH ×2 (06:10→20:07)
[2023-03-07] MEDS: Albuterol/Ipratropium 3.0-0.5 MG/3 ML Neb Soln NEB SCH ×2 (06:10→20:07)
[2023-03-07 07:26] LABS: ANION GAP 9.3 mmol/L (5-15)
[2023-03-07] MEDS: Aspirin 81 MG Tab.Chew PO SCH (09:11)
[2023-03-07] MEDS: amLODIPine 2.5 MG Tab PO SCH (09:11)
[2023-03-07] MEDS: Doxycycline Monohydrate 100 MG Cap PO SCH ×2 (09:11→20:03)
[2023-03-07] MEDS: Apixaban 2.5 MG Tab PO SCH ×2 (09:11→20:02)
[2023-03-07] MEDS: Gabapentin 300 MG Cap PO SCH ×3 (09:11→20:02)
[2023-03-07] MEDS: Furosemide 20 MG Tab PO SCH (09:12)
[2023-03-07] MEDS: Pantoprazole 40 MG Tab.CR PO SCH (09:12)
[2023-03-07] MEDS: guaiFENesin 600 MG Tab.ER PO SCH ×2 (09:12→20:03)
[2023-03-07] MEDS: glipiZIDE 5 MG Tab.ER PO SCH (09:12)
[2023-03-07] MEDS: FLUoxetine 20 MG Cap PO SCH (09:12)
[2023-03-07] MEDS: Baclofen 10 MG Tab PO SCH ×2 (09:12→20:03)
[2023-03-07] MEDS: Magnesium Oxide 400 MG Tab PO SCH (09:12)
[2023-03-07] MEDS: methylPREDNISolone Sodium Succinate 40 MG/1 ML SDV IVPUSH SCH ×2 (09:13→20:02)
[2023-03-07] MEDS: Acetaminophen 325 MG Tab PO PRN ×2 (10:51→20:09)
[2023-03-07] MEDS: Metoprolol Succinate 25 MG Tab.ER PO SCH (20:06)
[2023-03-08] MEDS: Albuterol/Ipratropium 3.0-0.5 MG/3 ML Neb Soln NEB SCH ×2 (06:20→20:58)
[2023-03-08] MEDS: Budesonide 0.5 MG/2 ML Neb Susp NEB SCH ×2 (06:20→20:58)
[2023-03-08] MEDS: Acetaminophen 325 MG Tab PO PRN ×2 (06:22→21:01)
[2023-03-08] MEDS: Doxycycline Monohydrate 100 MG Cap PO SCH (08:45)
[2023-03-08] MEDS: Furosemide 20 MG Tab PO SCH (08:45)
[2023-03-08] MEDS: Gabapentin 300 MG Cap PO SCH ×3 (08:45→21:00)
[2023-03-08] MEDS: FLUoxetine 20 MG Cap PO SCH (08:46)
[2023-03-08] MEDS: guaiFENesin 600 MG Tab.ER PO SCH ×2 (08:46→21:00)
[2023-03-08] MEDS: Aspirin 81 MG Tab.Chew PO SCH (08:46)
[2023-03-08] MEDS: Apixaban 2.5 MG Tab PO SCH ×2 (08:46→21:00)
[2023-03-08] MEDS: Magnesium Oxide 400 MG Tab PO SCH (08:47)
[2023-03-08] MEDS: amLODIPine 2.5 MG Tab PO SCH (08:47)
[2023-03-08] MEDS: Pantoprazole 40 MG Tab.CR PO SCH (08:47)
[2023-03-08] MEDS: glipiZIDE 5 MG Tab.ER PO SCH (08:47)
[2023-03-08] MEDS: Baclofen 10 MG Tab PO SCH ×2 (08:48→21:00)
[2023-03-08] MEDS: methylPREDNISolone Sodium Succinate 40 MG/1 ML SDV IVPUSH SCH ×2 (08:50→20:58)
[2023-03-08] MEDS: Hypromellose 0.3% Ophth Soln 15 ML Bottle EYEBOTH PRN (14:01)
[2023-03-08] MEDS: Metoprolol Succinate 25 MG Tab.ER PO SCH (21:00)
[2023-03-09] MEDS: Albuterol/Ipratropium 3.0-0.5 MG/3 ML Neb Soln NEB SCH ×2 (06:51→20:57)
[2023-03-09] MEDS: Budesonide 0.5 MG/2 ML Neb Susp NEB SCH ×2 (06:51→20:57)
[2023-03-09] MEDS: Hypromellose 0.3% Ophth Soln 15 ML Bottle EYEBOTH PRN (07:57)
[2023-03-09] MEDS: methylPREDNISolone Sodium Succinate 40 MG/1 ML SDV IVPUSH SCH ×2 (08:11→21:01)
[2023-03-09] MEDS: amLODIPine 2.5 MG Tab PO SCH (08:17)
[2023-03-09] MEDS: Apixaban 2.5 MG Tab PO SCH ×2 (08:17→20:57)
[2023-03-09] MEDS: Furosemide 20 MG Tab PO SCH (08:18)
[2023-03-09] MEDS: glipiZIDE 5 MG Tab.ER PO SCH (08:18)
[2023-03-09] MEDS: Aspirin 81 MG Tab.Chew PO SCH (08:18)
[2023-03-09] MEDS: Gabapentin 300 MG Cap PO SCH ×3 (08:18→20:57)
[2023-03-09] MEDS: Magnesium Oxide 400 MG Tab PO SCH (08:18)
[2023-03-09] MEDS: Pantoprazole 40 MG Tab.CR PO SCH (08:18)
[2023-03-09] MEDS: Baclofen 10 MG Tab PO SCH ×2 (08:18→20:57)
[2023-03-09] MEDS: FLUoxetine 20 MG Cap PO SCH (08:19)
[2023-03-09] MEDS: guaiFENesin 600 MG Tab.ER PO SCH ×2 (08:19→20:57)
[2023-03-09] MEDS: Acetaminophen 325 MG Tab PO PRN ×2 (08:19→21:03)
[2023-03-09 08:47] LABS: ANION GAP 10.6 mmol/L (5-15)
[2023-03-09] MEDS: Metoprolol Succinate 25 MG Tab.ER PO SCH (20:58)
[2023-03-10] MEDS: Albuterol/Ipratropium 3.0-0.5 MG/3 ML Neb Soln NEB SCH (07:08)
[2023-03-10] MEDS: Budesonide 0.5 MG/2 ML Neb Susp NEB SCH (07:08)
[2023-03-10] MEDS: Pantoprazole 40 MG Tab.CR PO SCH (08:29)
[2023-03-10] MEDS: Magnesium Oxide 400 MG Tab PO SCH (08:29)
[2023-03-10] MEDS: glipiZIDE 5 MG Tab.ER PO SCH (08:29)
[2023-03-10] MEDS: FLUoxetine 20 MG Cap PO SCH (08:29)
[2023-03-10] MEDS: Gabapentin 300 MG Cap PO SCH (08:29)
[2023-03-10] MEDS: Baclofen 10 MG Tab PO SCH (08:30)
[2023-03-10] MEDS: guaiFENesin 600 MG Tab.ER PO SCH (08:30)
[2023-03-10] MEDS: Apixaban 2.5 MG Tab PO SCH (08:30)
[2023-03-10] MEDS: Aspirin 81 MG Tab.Chew PO SCH (08:30)
[2023-03-10] MEDS: amLODIPine 2.5 MG Tab PO SCH (08:32)
[2023-03-10] MEDS: Furosemide 20 MG Tab PO SCH (08:32)
[2023-03-10] MEDS: methylPREDNISolone Sodium Succinate 40 MG/1 ML SDV IVPUSH SCH (12:12)
[2023-03-10] MEDS: predniSONE 20 MG Tab PO SCH (12:15)
[2023-03-10 13:15] VITALS: BP 130/62; PULSE 78
== END 2023-03-10 13:45 | disposition swing bed (61) | DRG 196 ==
LOC: VM.ED 15:34 → VM.MS 17:36
PROVIDERS: ADMIT Family Medicine; ATTEND Family Medicine
DX: J84.9 Interstitial pulmonary disease, unspecified (principal); G93.41 Metabolic encephalopathy; J96.21 Acute and chronic respiratory failure with hypoxia; J44.1 Chronic obstructive pulmonary disease with (acute) exacerbation; E87.20 Acidosis, unspecified; I13.0 Hypertensive heart and chronic kidney disease with heart failure and stage 1 through stage 4 chronic kidney disease, or unspecified chronic kidney disease; I50.32 Chronic diastolic (congestive) heart failure; G93.1 Anoxic brain damage, not elsewhere classified; D63.1 Anemia in chronic kidney disease; E11.22 Type 2 diabetes mellitus with diabetic chronic kidney disease; A41.9 Sepsis, unspecified organism; Z20.822 Contact with and (suspected) exposure to COVID-19; M54.50 Low back pain, unspecified; I48.0 Paroxysmal atrial fibrillation; F32.A Depression, unspecified; N18.30 Chronic kidney disease, stage 3 unspecified; E78.5 Hyperlipidemia, unspecified; I45.10 Unspecified right bundle-branch block; F41.9 Anxiety disorder, unspecified; E11.65 Type 2 diabetes mellitus with hyperglycemia; L89.319 Pressure ulcer of right buttock, unspecified stage; E11.9 Type 2 diabetes mellitus without complications; G89.4 Chronic pain syndrome; E11.51 Type 2 diabetes mellitus with diabetic peripheral angiopathy without gangrene; F10.20 Alcohol dependence, uncomplicated; K59.00 Constipation, unspecified; I10 Essential (primary) hypertension; E78.00 Pure hypercholesterolemia, unspecified; Z79.51 Long term (current) use of inhaled steroids; G25.81 Restless legs syndrome; Z88.8 Allergy status to other drugs, medicaments and biological substances; Z91.041 Radiographic dye allergy status; Z86.010 Personal history of colon polyps; E66.9 Obesity, unspecified; Z98.49 Cataract extraction status, unspecified eye; Z98.890 Other specified postprocedural states; Z83.3 Family history of diabetes mellitus; Z79.4 Long term (current) use of insulin; Z68.27 Body mass index [BMI] 27.0-27.9, adult; F11.90 Opioid use, unspecified, uncomplicated; Z99.81 Dependence on supplemental oxygen; Z79.84 Long term (current) use of oral hypoglycemic drugs; Z79.82 Long term (current) use of aspirin; Z79.899 Other long term (current) drug therapy; Z87.891 Personal history of nicotine dependence
CPT/HCPCS: 0241U; 36415; 36600; 51702; 71045; 80048; 80053; 81003; 82803; 82947; 83605; 83880; 84484; 85025; 85027; 85379; 85610; 86140; 87040; 93005; 93010; 94640; 94667; 94668; 94760; 96361; 96374; 96375; 97110-GP; 97116-GP; 97161-GP; 97165-GO; 97530-GP; 97535-GO; 99284; 99285-25; A9270-GY; J0692; J1630; J2920; J2930; J3370; J3490; J7030; J7120; J7512; J7620-GY

== ENCOUNTER 2023-03-10 13:30 | Inpatient (IN) | payer MEDICARE, OTHER ==
[2023-03-10] MEDS ORDERED: Menthol 10%/Methyl Salicylate 15% 85 GM Tube TOP PRN (14:57)
[2023-03-10] MEDS ORDERED: Magnesium Hydroxide 400 MG/5 ML Susp 30 ML Cup PO PRN (14:57)
[2023-03-10] MEDS ORDERED: Hypromellose 0.3% Ophth Soln 15 ML Bottle EYEBOTH PRN ×2 (14:57)
[2023-03-10] MEDS ORDERED: Polyethylene Glycol 3350 Powder 17 GM Packet PO PRN (14:57)
[2023-03-10] MEDS ORDERED: [UNRECOGNIZED DRUG - OTHER] SCH (14:57)
[2023-03-10] MEDS ORDERED: Albuterol 0.083% 2.5 MG/3 ML Neb Soln NEB PRN (14:57)
[2023-03-10] MEDS: Metoprolol Succinate 25 MG Tab.ER PO SCH (20:03)
[2023-03-10] MEDS: Budesonide 0.5 MG/2 ML Neb Susp NEB SCH (20:03)
[2023-03-10] MEDS: Albuterol/Ipratropium 3.0-0.5 MG/3 ML Neb Soln NEB SCH (20:03)
[2023-03-10] MEDS: Gabapentin 300 MG Cap PO SCH (20:04)
[2023-03-10] MEDS: Apixaban 2.5 MG Tab PO SCH (20:04)
[2023-03-10] MEDS: Baclofen 10 MG Tab PO SCH (20:04)
[2023-03-10] MEDS: guaiFENesin 600 MG Tab.ER PO SCH (20:05)
[2023-03-11] MEDS: Budesonide 0.5 MG/2 ML Neb Susp NEB SCH ×2 (06:08→21:07)
[2023-03-11] MEDS: Albuterol/Ipratropium 3.0-0.5 MG/3 ML Neb Soln NEB SCH ×2 (06:08→21:07)
[2023-03-11] MEDS: Apixaban 2.5 MG Tab PO SCH ×2 (09:01→21:06)
[2023-03-11] MEDS: FLUoxetine 20 MG Cap PO SCH (09:01)
[2023-03-11] MEDS: Pantoprazole 40 MG Tab.CR PO SCH (09:01)
[2023-03-11] MEDS: guaiFENesin 600 MG Tab.ER PO SCH ×2 (09:01→21:06)
[2023-03-11] MEDS: Gabapentin 300 MG Cap PO SCH ×3 (09:03→21:06)
[2023-03-11] MEDS: predniSONE 20 MG Tab PO SCH (09:03)
[2023-03-11] MEDS: Furosemide 20 MG Tab PO SCH (09:03)
[2023-03-11] MEDS: glipiZIDE 5 MG Tab.ER PO SCH (09:04)
[2023-03-11] MEDS: Aspirin 81 MG Tab.Chew PO SCH (09:04)
[2023-03-11] MEDS: Magnesium Oxide 400 MG Tab PO SCH (09:04)
[2023-03-11] MEDS: Baclofen 10 MG Tab PO SCH ×2 (09:04→21:06)
[2023-03-11] MEDS: Acetaminophen 325 MG Tab PO PRN ×2 (09:06→14:05)
[2023-03-11] MEDS: amLODIPine 2.5 MG Tab PO SCH (09:10)
[2023-03-11] MEDS: Metoprolol Succinate 25 MG Tab.ER PO SCH (21:07)
[2023-03-12] MEDS: Albuterol/Ipratropium 3.0-0.5 MG/3 ML Neb Soln NEB SCH ×2 (06:27→21:25)
[2023-03-12] MEDS: Budesonide 0.5 MG/2 ML Neb Susp NEB SCH ×2 (06:27→21:25)
[2023-03-12] MEDS: Gabapentin 300 MG Cap PO SCH ×3 (08:37→21:25)
[2023-03-12] MEDS: predniSONE 20 MG Tab PO SCH (08:37)
[2023-03-12] MEDS: Aspirin 81 MG Tab.Chew PO SCH (08:38)
[2023-03-12] MEDS: Apixaban 2.5 MG Tab PO SCH ×2 (08:38→21:25)
[2023-03-12] MEDS: Magnesium Oxide 400 MG Tab PO SCH (08:38)
[2023-03-12] MEDS: glipiZIDE 5 MG Tab.ER PO SCH (08:38)
[2023-03-12] MEDS: Pantoprazole 40 MG Tab.CR PO SCH (08:40)
[2023-03-12] MEDS: Furosemide 20 MG Tab PO SCH (08:41)
[2023-03-12] MEDS: Baclofen 10 MG Tab PO SCH ×2 (08:41→21:25)
[2023-03-12] MEDS: guaiFENesin 600 MG Tab.ER PO SCH ×2 (08:41→21:25)
[2023-03-12] MEDS: FLUoxetine 20 MG Cap PO SCH (08:41)
[2023-03-12] MEDS: amLODIPine 2.5 MG Tab PO SCH (08:42)
[2023-03-12] MEDS: Sulfamethoxazole/Trimethoprim 400-80 MG Tab PO SCH (08:45)
[2023-03-12] MEDS: Acetaminophen 325 MG Tab PO PRN ×3 (08:47→18:15)
[2023-03-12] MEDS: Metoprolol Succinate 25 MG Tab.ER PO SCH (21:24)
[2023-03-13] MEDS: Budesonide 0.5 MG/2 ML Neb Susp NEB SCH ×2 (06:34→20:20)
[2023-03-13] MEDS: Albuterol/Ipratropium 3.0-0.5 MG/3 ML Neb Soln NEB SCH ×2 (06:34→20:19)
[2023-03-13] MEDS: FLUoxetine 20 MG Cap PO SCH (09:56)
[2023-03-13] MEDS: Aspirin 81 MG Tab.Chew PO SCH (09:56)
[2023-03-13] MEDS: glipiZIDE 5 MG Tab.ER PO SCH (09:56)
[2023-03-13] MEDS: guaiFENesin 600 MG Tab.ER PO SCH ×2 (09:57→20:20)
[2023-03-13] MEDS: Magnesium Oxide 400 MG Tab PO SCH (09:57)
[2023-03-13] MEDS: Pantoprazole 40 MG Tab.CR PO SCH (09:57)
[2023-03-13] MEDS: Furosemide 20 MG Tab PO SCH (09:57)
[2023-03-13] MEDS: predniSONE 20 MG Tab PO SCH (09:57)
[2023-03-13] MEDS: amLODIPine 2.5 MG Tab PO SCH (09:57)
[2023-03-13] MEDS: Baclofen 10 MG Tab PO SCH ×2 (09:58→20:21)
[2023-03-13] MEDS: Apixaban 2.5 MG Tab PO SCH ×2 (09:58→20:20)
[2023-03-13] MEDS: Gabapentin 300 MG Cap PO SCH ×3 (09:58→20:20)
[2023-03-13] MEDS: Acetaminophen 325 MG Tab PO PRN ×2 (10:03→20:32)
[2023-03-13] MEDS: Metoprolol Succinate 25 MG Tab.ER PO SCH (20:24)
[2023-03-14] MEDS: Albuterol/Ipratropium 3.0-0.5 MG/3 ML Neb Soln NEB SCH (06:27)
[2023-03-14] MEDS: Budesonide 0.5 MG/2 ML Neb Susp NEB SCH (06:28)
[2023-03-14 06:40] VITALS: PULSE 72
[2023-03-14] MEDS: Acetaminophen 325 MG Tab PO PRN ×2 (08:24→12:27)
[2023-03-14] MEDS: Aspirin 81 MG Tab.Chew PO SCH (08:24)
[2023-03-14] MEDS: Pantoprazole 40 MG Tab.CR PO SCH (08:25)
[2023-03-14] MEDS: amLODIPine 2.5 MG Tab PO SCH (08:25)
[2023-03-14] MEDS: guaiFENesin 600 MG Tab.ER PO SCH (08:25)
[2023-03-14] MEDS: glipiZIDE 5 MG Tab.ER PO SCH (08:25)
[2023-03-14] MEDS: predniSONE 20 MG Tab PO SCH (08:25)
[2023-03-14] MEDS: Baclofen 10 MG Tab PO SCH (08:25)
[2023-03-14] MEDS: Gabapentin 300 MG Cap PO SCH ×2 (08:25→12:22)
[2023-03-14 08:26] VITALS: BP 135/65
[2023-03-14] MEDS: Magnesium Oxide 400 MG Tab PO SCH (08:26)
[2023-03-14] MEDS: Furosemide 20 MG Tab PO SCH (08:26)
[2023-03-14] MEDS: Apixaban 2.5 MG Tab PO SCH (08:26)
[2023-03-14] MEDS: FLUoxetine 20 MG Cap PO SCH (08:26)
[2023-03-14] MEDS: Sulfamethoxazole/Trimethoprim 400-80 MG Tab PO SCH (10:13)
[2023-03-18] MEDS ORDERED: predniSONE 20 MG Tab PO SCH (09:00)
== END 2023-03-14 14:00 | disposition home health service (06) | DRG 190 ==
LOC: VM.MS 14:57
PROVIDERS: ADMIT Family Medicine; ATTEND Family Medicine
DX: J44.0 Chronic obstructive pulmonary disease with (acute) lower respiratory infection (principal); J18.9 Pneumonia, unspecified organism; E87.20 Acidosis, unspecified; I13.0 Hypertensive heart and chronic kidney disease with heart failure and stage 1 through stage 4 chronic kidney disease, or unspecified chronic kidney disease; J44.1 Chronic obstructive pulmonary disease with (acute) exacerbation; D63.1 Anemia in chronic kidney disease; E11.22 Type 2 diabetes mellitus with diabetic chronic kidney disease; M54.50 Low back pain, unspecified; E11.51 Type 2 diabetes mellitus with diabetic peripheral angiopathy without gangrene; E78.00 Pure hypercholesterolemia, unspecified; F32.A Depression, unspecified; G89.4 Chronic pain syndrome; K59.00 Constipation, unspecified; N18.30 Chronic kidney disease, stage 3 unspecified; E78.5 Hyperlipidemia, unspecified; E66.9 Obesity, unspecified; I50.9 Heart failure, unspecified; Z79.82 Long term (current) use of aspirin; Z79.84 Long term (current) use of oral hypoglycemic drugs; Z79.51 Long term (current) use of inhaled steroids; Z79.899 Other long term (current) drug therapy; Z86.010 Personal history of colon polyps; Z98.890 Other specified postprocedural states; Z87.891 Personal history of nicotine dependence; Z98.49 Cataract extraction status, unspecified eye; Z68.27 Body mass index [BMI] 27.0-27.9, adult
CPT/HCPCS: 82947; 94640; 95851-GO; 97110-GP; 97116-GP; 97535-GO; A9270-GY; J3490; J7512; J7620-GY

== ENCOUNTER 2023-04-25 17:36 | Emergency (ER) | payer MEDICARE, OTHER ==
[2023-04-25] MEDS ORDERED: Sodium Chloride 0.9% 1,000 ML IV ONE (17:56)
[2023-04-25 18:15] LABS: BASOPHILS ABSOLUTE AUTO 0.1 x10^3/uL (0.0-0.2); BASOPHILS PERCENT AUTO 0.6 % (0.2-1.2); EOSINOPHILS ABSOLUTE AUTO 0.1 x10^3/uL (0.0-0.5); HEMATOCRIT 31.5 % (40.0-52.0); HEMOGLOBIN 9.8 g/dL (14.0-18.0); IMMATURE GRAN ABSOLUTE AUTO 0.04 x10^3/uL (0.00-0.07); LYMPHOCYTES ABSOLUTE AUTO 1.1 x10^3/uL (1.0-4.8); LYMPHOCYTES PERCENT AUTO 7.7 % (25.0-50.0); MEAN CORPUSCULAR HEMOGLOBIN 28.7 pg (26.0-32.0); MEAN CORPUSCULAR HGB CONC 31.1 g/dL (32.0-36.0); MEAN CORPUSCULAR VOLUME 92.4 fL (78.0-93.0); MONOCYTES ABSOLUTE AUTO 1.3 x10^3/uL (0.0-0.8); MONOCYTES PERCENT AUTO 8.9 % (2.0-11.0); NEUTROPHILS ABSOLUTE AUTO 11.5 x10^3/uL (1.8-7.7); NEUTROPHILS PERCENT AUTO 81.5 % (50.0-80.0); PLATELET COUNT,PLT 241 x10^3/uL (130-400); RED BLOOD CELL COUNT 3.41 x10^6/uL (4.5-6.0); WHITE BLOOD CELL COUNT,WBC 14.1 x10^3/uL (4.0-10.0)
[2023-04-25 18:43] LABS: A/G RATIO 0.84; ALANINE AMINOTRANSFERASE,ALT 19 U/L (16-63); ALBUMIN 3.2 g/dL (3.4-5.0); ALKALINE PHOSPHATASE 55 U/L (46-116); ASPARTATE AMNIOTRANSFERASE,AST 20 U/L (15-37); BILIRUBIN TOTAL 0.4 mg/dL (0.2-1.0); BLOOD UREA NITROGEN,BUN 20 mg/dL (7-18); C-REACTIVE PROTEIN 4.9 mg/dL (<=0.9); CALCIUM 9.7 mg/dL (8.5-10.1); CARBON DIOXIDE,CO2 35 mmol/L (21-32); CHLORIDE,CL 101 mmol/L (98-107); CREATININE 1.4 mg/dL (0.70-1.30); GLUCOSE RANDOM 145 mg/dL (70-99); POTASSIUM,K 4.5 mmol/L (3.5-5.1); PRO B-TYPE NATRIUR PEPT,BNPPRO 898 pg/mL (<=450); SODIUM,NA 144 mmol/L (136-145)
[2023-04-25 18:44] LABS: ANION GAP 12.5 mmol/L (5-15); ESTIMATED GFR 51 mL/min (>=60)
[2023-04-25 20:07] VITALS: BP 151/76; PULSE 98
[2023-04-26 08:07] LABS: APPEARANCE,URINE CLOUDY (CLEAR); COLOR,URINE YELLOW (YELLOW); GLUCOSE,URINE NEGATIVE (NEGATIVE); PROTEIN,URINE TRACE mg/dL (NEGATIVE)
[2023-04-26 08:08] LABS: BILIRUBIN,URINE NEGATIVE (NEGATIVE); KETONES,URINE NEGATIVE (NEGATIVE); LEUKOCYTE ESTERASE,URINE NEGATIVE (NEGATIVE); NITRITE,URINE NEGATIVE (NEGATIVE); OCCULT BLOOD,URINE NEGATIVE (NEGATIVE); UROBILINOGEN,URINE 0.2 EU/dL (0.2)
[2023-04-26 08:09] LABS: AMORPHOUS SEDIMENT,URINE MODERATE; BACTERIA,URINE RARE /HPF (NOT SEEN); MUCUS,URINE FEW /LPF (NOT SEEN); RBC,URINE 0-5 /HPF (NOT SEEN); SQUAMOUS EPITHELIAL CELLS,UR RARE /HPF (NOT SEEN); WBC,URINE 0-5 /HPF (NOT SEEN)
== END 2023-04-25 20:45 | disposition home or self-care (01) ==
LOC: VM.ED 17:36
DX: E11.649 Type 2 diabetes mellitus with hypoglycemia without coma (principal); I12.9 Hypertensive chronic kidney disease with stage 1 through stage 4 chronic kidney disease, or unspecified chronic kidney disease; E11.22 Type 2 diabetes mellitus with diabetic chronic kidney disease; N18.9 Chronic kidney disease, unspecified; I48.91 Unspecified atrial fibrillation; J44.9 Chronic obstructive pulmonary disease, unspecified; E66.9 Obesity, unspecified; Z68.29 Body mass index [BMI] 29.0-29.9, adult; Z87.891 Personal history of nicotine dependence; Z88.8 Allergy status to other drugs, medicaments and biological substances; Z79.899 Other long term (current) drug therapy; Z79.01 Long term (current) use of anticoagulants; Z79.84 Long term (current) use of oral hypoglycemic drugs; Z79.82 Long term (current) use of aspirin
CPT/HCPCS: 36415; 71045; 80053; 81001; 82947; 83605; 83880; 84145; 84484; 85025; 86140; 87040; 93005; 94760; 96360; 99285; J7030; 93010; 99284

== ENCOUNTER 2023-04-27 12:55 | Inpatient (IN) | payer OTHER, MEDICARE ==
[2023-04-27] MEDS ORDERED: Sodium Chloride 0.9% 10 ML Syringe FLUSH PRN (13:00)
[2023-04-27] MEDS ORDERED: Albuterol/Ipratropium 3.0-0.5 MG/3 ML Neb Soln NEB ONE (13:03)
[2023-04-27] MEDS ORDERED: methylPREDNISolone Sodium Succinate 125 MG/2 ML SDV IV ONE (13:03)
[2023-04-27] MEDS ORDERED: cefTRIAXone 1 GM Vial IVPUSH ONE (13:30)
[2023-04-27] MEDS ORDERED: Azithromycin 500 MG in Sodium Chloride 0.9% 250 ML IV ONE (13:31)
[2023-04-27 13:32] LABS: BASOPHILS ABSOLUTE AUTO 0.1 x10^3/uL (0.0-0.2); BASOPHILS PERCENT AUTO 0.5 % (0.2-1.2); IMMATURE GRAN ABSOLUTE AUTO 0.09 x10^3/uL (0.00-0.07); LYMPHOCYTES ABSOLUTE AUTO 0.7 x10^3/uL (1.0-4.8); MEAN CORPUSCULAR HEMOGLOBIN 28.9 pg (26.0-32.0); MEAN CORPUSCULAR HGB CONC 31.3 g/dL (32.0-36.0); MEAN CORPUSCULAR VOLUME 92.5 fL (78.0-93.0); MONOCYTES ABSOLUTE AUTO 0.6 x10^3/uL (0.0-0.8); MONOCYTES PERCENT AUTO 3.6 % (2.0-11.0); NEUTROPHILS PERCENT AUTO 91.4 % (50.0-80.0); PLATELET COUNT,PLT 244 x10^3/uL (130-400); RED BLOOD CELL COUNT 3.46 x10^6/uL (4.5-6.0); WHITE BLOOD CELL COUNT,WBC 16.5 x10^3/uL (4.0-10.0)
[2023-04-27 13:39] LABS: BASE EXCESS ARTERIAL,POC -6 mmol/L ((-2)-3); HCO3 ARTERIAL,POC 20.4 mmol/L (21-28); O2 SATURATION ARTERIAL,POC 94.3 % (94-98); PCO2 ARTERIAL,POC 39 mmHg (35-48); PH ARTERIAL,POC 7.33 pH (7.35-7.45); PO2 ARTERIAL,POC 77 mmHg (83-108); TCO2 ARTERIAL,POC 20.5 mmol/L (22-29)
[2023-04-27 13:52] LABS: INR 1.2 (2.0-3.5); LACTIC ACID 8.5 mmol/L (0.4-2.0); PROTHROMBIN TIME 12.7 SEC (9.5-12.2); PTT,PARTIAL THROMBOPLSTIN TIME 29.6 SEC (23.6-33.6)
[2023-04-27 13:59] LABS: A/G RATIO 0.76; ALANINE AMINOTRANSFERASE,ALT 975 U/L (16-63); ALBUMIN 3.2 g/dL (3.4-5.0); ALKALINE PHOSPHATASE 99 U/L (46-116); ANION GAP 24.4 mmol/L (5-15); ASPARTATE AMNIOTRANSFERASE,AST 1050 U/L (15-37); BILIRUBIN TOTAL 0.9 mg/dL (0.2-1.0); BLOOD UREA NITROGEN,BUN 38 mg/dL (7-18); CALCIUM 9.6 mg/dL (8.5-10.1); CARBON DIOXIDE,CO2 21 mmol/L (21-32); CHLORIDE,CL 99 mmol/L (98-107); CREATININE 2.3 mg/dL (0.70-1.30); ESTIMATED GFR 28 mL/min (>=60); GLUCOSE RANDOM 267 mg/dL (70-99); MAGNESIUM 2.7 mg/dL (1.8-2.4); PHOSPHORUS 5.5 mg/dL (2.6-4.7); PRO B-TYPE NATRIUR PEPT,BNPPRO 10345 pg/mL (<=450); PROTEIN TOTAL,TP 7.4 g/dL (6.4-8.2); SODIUM,NA 138 mmol/L (136-145)
[2023-04-27 14:00] LABS: POTASSIUM,K 6.4 mmol/L (3.5-5.1)
[2023-04-27] MEDS ORDERED: Sodium Chloride 0.9% 1,000 ML IV SCH (14:00)
[2023-04-27 14:01] LABS: C-REACTIVE PROTEIN 29.6 mg/dL (<=0.9)
[2023-04-27] MEDS ORDERED: Albuterol 0.083% 2.5 MG/3 ML Neb Soln NEB ONE (14:10)
[2023-04-27] MEDS ORDERED: Sodium Bicarbonate 8.4% 50 MEQ/50 ML Syringe IVPUSH ONE (14:11)
[2023-04-27 14:51] LABS: CORONAVIRUS COVID-19 NAA NEGATIVE (NEGATIVE); INFLUENZA A NAA NEGATIVE (NEGATIVE); INFLUENZA B NAA NEGATIVE (NEGATIVE); RESPIRATORY SYNCYTIAL VIR NAA NEGATIVE (NEGATIVE)
[2023-04-27 16:04] LABS: BASE EXCESS ARTERIAL,POC -3 mmol/L ((-2)-3); HCO3 ARTERIAL,POC 23.3 mmol/L (21-28); PCO2 ARTERIAL,POC 46 mmHg (35-48); PH ARTERIAL,POC 7.31 pH (7.35-7.45); PO2 ARTERIAL,POC 90 mmHg (83-108); TCO2 ARTERIAL,POC 23.5 mmol/L (22-29)
[2023-04-27] MEDS: Dextrose 5%-0.45% NaCl 1,000 ML IV SCH (16:10)
[2023-04-27 16:46] LABS: APPEARANCE,URINE SLIGHTLY CLOUDY (CLEAR); BILIRUBIN,URINE SMALL (NEGATIVE); COLOR,URINE DARK YELLOW (YELLOW); GLUCOSE,URINE NEGATIVE (NEGATIVE); KETONES,URINE TRACE mg/dL (NEGATIVE); LEUKOCYTE ESTERASE,URINE NEGATIVE (NEGATIVE); NITRITE,URINE NEGATIVE (NEGATIVE); OCCULT BLOOD,URINE NEGATIVE (NEGATIVE); PH,URINE 5.5 (5.0-8.0); PROTEIN,URINE 30 mg/dL (NEGATIVE); UROBILINOGEN,URINE 0.2 EU/dL (0.2)
[2023-04-27 16:47] LABS: RBC,URINE 0-5 /HPF (NOT SEEN)
[2023-04-27 16:48] LABS: AMORPHOUS SEDIMENT,URINE FEW; BACTERIA,URINE OCCASIONAL /HPF (NOT SEEN); HYALINE CASTS,URINE OCCASIONAL; MUCUS,URINE FEW /LPF (NOT SEEN); SQUAMOUS EPITHELIAL CELLS,UR NOT SEEN /HPF (NOT SEEN); WBC,URINE 0-5 /HPF (NOT SEEN)
[2023-04-27] MEDS ORDERED: Hypromellose 0.3% Ophth Soln 15 ML Bottle EYEBOTH PRN (17:01)
[2023-04-27] MEDS ORDERED: Albuterol 0.083% 2.5 MG/3 ML Neb Soln NEB PRN (17:01)
[2023-04-27] MEDS ORDERED: PROPYLENE GLYCOL EYEBOTH PRN (17:01)
[2023-04-27] MEDS ORDERED: PEG EYEBOTH PRN (17:01)
[2023-04-27] MEDS ORDERED: [UNRECOGNIZED DRUG - OTHER] EYEBOTH PRN (17:01)
[2023-04-27] MEDS ORDERED: [UNRECOGNIZED DRUG - OTHER] INH SCH (17:15)
[2023-04-27 20:29] LABS: CALCIUM 8.9 mg/dL (8.5-10.1); CREATININE 2.1 mg/dL (0.70-1.30); EST CRCL DRUG DOSING (CG) 27.6 mL/min; POTASSIUM,K 4.9 mmol/L (3.5-5.1)
[2023-04-27 20:30] LABS: ANION GAP 16.9 mmol/L (5-15)
[2023-04-27] MEDS: Budesonide 0.5 MG/2 ML Neb Susp NEB SCH (20:56)
[2023-04-28] MEDS: Dextrose 5%-0.45% NaCl 1,000 ML IV SCH ×2 (04:57→19:35)
[2023-04-28 07:14] LABS: BASOPHILS ABSOLUTE AUTO 0.1 x10^3/uL (0.0-0.2); BASOPHILS PERCENT AUTO 0.4 % (0.2-1.2); HEMATOCRIT 26.9 % (40.0-52.0); HEMOGLOBIN 8.1 g/dL (14.0-18.0); IMMATURE GRAN ABSOLUTE AUTO 0.07 x10^3/uL (0.00-0.07); LYMPHOCYTES ABSOLUTE AUTO 0.7 x10^3/uL (1.0-4.8); LYMPHOCYTES PERCENT AUTO 4.8 % (25.0-50.0); MEAN CORPUSCULAR HEMOGLOBIN 27.9 pg (26.0-32.0); MEAN CORPUSCULAR HGB CONC 30.1 g/dL (32.0-36.0); MEAN CORPUSCULAR VOLUME 92.8 fL (78.0-93.0); MONOCYTES ABSOLUTE AUTO 0.7 x10^3/uL (0.0-0.8); MONOCYTES PERCENT AUTO 4.6 % (2.0-11.0); NEUTROPHILS ABSOLUTE AUTO 13.7 x10^3/uL (1.8-7.7); NEUTROPHILS PERCENT AUTO 89.7 % (50.0-80.0); PLATELET COUNT,PLT 182 x10^3/uL (130-400); WHITE BLOOD CELL COUNT,WBC 15.3 x10^3/uL (4.0-10.0)
[2023-04-28 07:46] LABS: A/G RATIO 0.73; ALBUMIN 2.7 g/dL (3.4-5.0); BILIRUBIN TOTAL 0.3 mg/dL (0.2-1.0); CALCIUM 8.9 mg/dL (8.5-10.1); CREATININE 1.5 mg/dL (0.70-1.30); EST CRCL DRUG DOSING (CG) 38.63 mL/min; MAGNESIUM 2.5 mg/dL (1.8-2.4); POTASSIUM,K 4.9 mmol/L (3.5-5.1); PROTEIN TOTAL,TP 6.4 g/dL (6.4-8.2)
[2023-04-28 07:57] LABS: ANION GAP 11.9 mmol/L (5-15); C-REACTIVE PROTEIN 21.1 mg/dL (<=0.9)
[2023-04-28] MEDS ORDERED: Enoxaparin 40 MG/0.4 ML Syringe SUBCUT SCH ×2 (09:00→12:00)
[2023-04-28] MEDS: Azithromycin 500 MG in Sodium Chloride 0.9% 250 ML IV SCH (09:04)
[2023-04-28] MEDS: Furosemide 20 MG/2 ML VIAL IV SCH (10:54)
[2023-04-28] MEDS: Budesonide 0.5 MG/2 ML Neb Susp NEB SCH ×2 (10:59→20:47)
[2023-04-28] MEDS: cefTRIAXone 1 GM Vial IVPUSH SCH (11:01)
[2023-04-28] MEDS ORDERED: Sennosides/Docusate Sodium 50-8.6 MG Tab PO PRN (12:33)
[2023-04-28] MEDS: Gabapentin 300 MG Cap PO SCH ×2 (16:09→21:10)
[2023-04-28] MEDS: Albuterol/Ipratropium 3.0-0.5 MG/3 ML Neb Soln NEB PRN (20:49)
[2023-04-28] MEDS: Apixaban 2.5 MG Tab PO SCH (21:09)
[2023-04-28] MEDS: Baclofen 10 MG Tab PO SCH (21:10)
[2023-04-28] MEDS: Metoprolol Succinate 25 MG Tab.ER PO SCH (21:13)
[2023-04-29] MEDS: Albuterol/Ipratropium 3.0-0.5 MG/3 ML Neb Soln NEB PRN ×3 (04:17→16:47)
[2023-04-29] MEDS: Acetaminophen 325 MG Tab PO PRN ×2 (06:43→17:36)
[2023-04-29] MEDS: Morphine 2 MG/ML SYRINGE IVPUSH PRN ×3 (06:49→16:47)
[2023-04-29 07:09] LABS: BASOPHILS ABSOLUTE AUTO 0.1 x10^3/uL (0.0-0.2); BASOPHILS PERCENT AUTO 0.4 % (0.2-1.2); EOSINOPHILS PERCENT AUTO 0.2 % (0.0-4.0); HEMATOCRIT 29.7 % (40.0-52.0); HEMOGLOBIN 9.1 g/dL (14.0-18.0); IMMATURE GRAN ABSOLUTE AUTO 0.06 x10^3/uL (0.00-0.07); LYMPHOCYTES PERCENT AUTO 5.5 % (25.0-50.0); MEAN CORPUSCULAR HEMOGLOBIN 28.1 pg (26.0-32.0); MEAN CORPUSCULAR HGB CONC 30.6 g/dL (32.0-36.0); MEAN CORPUSCULAR VOLUME 91.7 fL (78.0-93.0); MONOCYTES ABSOLUTE AUTO 1.3 x10^3/uL (0.0-0.8); MONOCYTES PERCENT AUTO 7.1 % (2.0-11.0); NEUTROPHILS ABSOLUTE AUTO 15.9 x10^3/uL (1.8-7.7); NEUTROPHILS PERCENT AUTO 86.5 % (50.0-80.0); PLATELET COUNT,PLT 144 x10^3/uL (130-400); RED BLOOD CELL COUNT 3.24 x10^6/uL (4.5-6.0)
[2023-04-29 07:24] LABS: WHITE BLOOD CELL COUNT,WBC 18.4 x10^3/uL (4.0-10.0)
[2023-04-29 07:31] LABS: A/G RATIO 0.72; ALBUMIN 2.8 g/dL (3.4-5.0); BILIRUBIN TOTAL 0.3 mg/dL (0.2-1.0); CALCIUM 9.1 mg/dL (8.5-10.1); EST CRCL DRUG DOSING (CG) 57.95 mL/min; POTASSIUM,K 4.4 mmol/L (3.5-5.1); PROTEIN TOTAL,TP 6.7 g/dL (6.4-8.2)
[2023-04-29 07:33] LABS: ANION GAP 10.4 mmol/L (5-15)
[2023-04-29] MEDS: Budesonide 0.5 MG/2 ML Neb Susp NEB SCH ×2 (08:24→21:34)
[2023-04-29] MEDS: Dextrose 5%-0.45% NaCl 1,000 ML IV SCH (08:31)
[2023-04-29] MEDS: Furosemide 20 MG/2 ML VIAL IV SCH (08:32)
[2023-04-29] MEDS: Apixaban 2.5 MG Tab PO SCH ×2 (08:33→21:35)
[2023-04-29] MEDS: amLODIPine 2.5 MG Tab PO SCH (08:34)
[2023-04-29] MEDS: Baclofen 10 MG Tab PO SCH ×2 (08:34→21:35)
[2023-04-29] MEDS: predniSONE 10 MG Tab PO SCH (08:34)
[2023-04-29] MEDS: Gabapentin 300 MG Cap PO SCH ×3 (08:34→21:35)
[2023-04-29] MEDS: FLUoxetine 20 MG Cap PO SCH (08:34)
[2023-04-29] MEDS: glipiZIDE 5 MG Tab.ER PO SCH (08:34)
[2023-04-29] MEDS: cefTRIAXone 1 GM Vial IVPUSH SCH (08:37)
[2023-04-29] MEDS: Azithromycin 500 MG in Sodium Chloride 0.9% 250 ML IV SCH (08:44)
[2023-04-29] MEDS ORDERED: Enoxaparin 40 MG/0.4 ML Syringe SUBCUT SCH (09:00)
[2023-04-29] MEDS ORDERED: Furosemide 40 MG/4 ML VIAL IV SCH (09:30)
[2023-04-29] MEDS ORDERED: Furosemide 20 MG/2 ML VIAL IV ONE (10:00)
[2023-04-29] MEDS: Mycophenolate Mofetil 250 MG Cap PO SCH ×2 (10:31→21:37)
[2023-04-29] MEDS ORDERED: Menthol 10%/Methyl Salicylate 15% 85 GM Tube TOP PRN (12:59)
[2023-04-29] MEDS ORDERED: Polyethylene Glycol 3350 Powder 17 GM Packet PO PRN (12:59)
[2023-04-29] MEDS ORDERED: LORazepam 0.5 MG Tab PO PRN (20:29)
[2023-04-29] MEDS: Metoprolol Succinate 25 MG Tab.ER PO SCH (21:33)
[2023-04-29] MEDS: Albuterol/Ipratropium 3.0-0.5 MG/3 ML Neb Soln NEB SCH (21:36)
[2023-04-30] MEDS: Albuterol/Ipratropium 3.0-0.5 MG/3 ML Neb Soln NEB SCH ×2 (07:01→20:27)
[2023-04-30 07:19] LABS: BASOPHILS ABSOLUTE AUTO 0.1 x10^3/uL (0.0-0.2); BASOPHILS PERCENT AUTO 0.4 % (0.2-1.2); EOSINOPHILS ABSOLUTE AUTO 0.1 x10^3/uL (0.0-0.5); EOSINOPHILS PERCENT AUTO 0.5 % (0.0-4.0); HEMATOCRIT 29.4 % (40.0-52.0); IMMATURE GRAN ABSOLUTE AUTO 0.04 x10^3/uL (0.00-0.07); LYMPHOCYTES ABSOLUTE AUTO 0.9 x10^3/uL (1.0-4.8); LYMPHOCYTES PERCENT AUTO 6.9 % (25.0-50.0); MEAN CORPUSCULAR HEMOGLOBIN 27.9 pg (26.0-32.0); MEAN CORPUSCULAR HGB CONC 30.6 g/dL (32.0-36.0); MONOCYTES ABSOLUTE AUTO 0.8 x10^3/uL (0.0-0.8); MONOCYTES PERCENT AUTO 6.4 % (2.0-11.0); NEUTROPHILS ABSOLUTE AUTO 11.3 x10^3/uL (1.8-7.7); NEUTROPHILS PERCENT AUTO 85.5 % (50.0-80.0); PLATELET COUNT,PLT 155 x10^3/uL (130-400); RED BLOOD CELL COUNT 3.23 x10^6/uL (4.5-6.0); WHITE BLOOD CELL COUNT,WBC 13.2 x10^3/uL (4.0-10.0)
[2023-04-30] MEDS: Acetaminophen 325 MG Tab PO PRN (07:34)
[2023-04-30 07:49] LABS: A/G RATIO 0.72; ALBUMIN 2.8 g/dL (3.4-5.0); BILIRUBIN TOTAL 0.5 mg/dL (0.2-1.0); CALCIUM 9.3 mg/dL (8.5-10.1); CREATININE 0.9 mg/dL (0.70-1.30); EST CRCL DRUG DOSING (CG) 64.39 mL/min; PROTEIN TOTAL,TP 6.7 g/dL (6.4-8.2)
[2023-04-30] MEDS: Furosemide 40 MG/4 ML VIAL IV SCH (08:12)
[2023-04-30] MEDS: Budesonide 0.5 MG/2 ML Neb Susp NEB SCH ×2 (08:14→20:27)
[2023-04-30] MEDS: Gabapentin 300 MG Cap PO SCH ×3 (08:15→20:27)
[2023-04-30] MEDS: Baclofen 10 MG Tab PO SCH ×2 (08:15→20:28)
[2023-04-30] MEDS: glipiZIDE 5 MG Tab.ER PO SCH (08:15)
[2023-04-30] MEDS: Mycophenolate Mofetil 250 MG Cap PO SCH ×2 (08:15→20:27)
[2023-04-30] MEDS: Apixaban 2.5 MG Tab PO SCH ×2 (08:15→20:27)
[2023-04-30] MEDS: Pantoprazole 40 MG Tab.CR PO SCH (08:15)
[2023-04-30] MEDS: FLUoxetine 20 MG Cap PO SCH (08:15)
[2023-04-30] MEDS: cefTRIAXone 1 GM Vial IVPUSH SCH (08:16)
[2023-04-30] MEDS: amLODIPine 2.5 MG Tab PO SCH (08:16)
[2023-04-30] MEDS: predniSONE 10 MG Tab PO SCH (08:16)
[2023-04-30] MEDS: Azithromycin 500 MG in Sodium Chloride 0.9% 250 ML IV SCH (08:22)
[2023-04-30] MEDS: Sulfamethoxazole/Trimethoprim 400-80 MG Tab PO SCH (09:40)
[2023-04-30] MEDS: Metoprolol Succinate 25 MG Tab.ER PO SCH (20:28)
[2023-05-01] MEDS: Albuterol/Ipratropium 3.0-0.5 MG/3 ML Neb Soln NEB SCH ×2 (06:59→20:18)
[2023-05-01 07:03] LABS: BASOPHILS ABSOLUTE AUTO 0.1 x10^3/uL (0.0-0.2); BASOPHILS PERCENT AUTO 0.6 % (0.2-1.2); EOSINOPHILS ABSOLUTE AUTO 0.1 x10^3/uL (0.0-0.5); HEMATOCRIT 30.4 % (40.0-52.0); HEMOGLOBIN 9.3 g/dL (14.0-18.0); IMMATURE GRAN ABSOLUTE AUTO 0.03 x10^3/uL (0.00-0.07); LYMPHOCYTES ABSOLUTE AUTO 1.5 x10^3/uL (1.0-4.8); LYMPHOCYTES PERCENT AUTO 13.3 % (25.0-50.0); MEAN CORPUSCULAR HEMOGLOBIN 27.8 pg (26.0-32.0); MEAN CORPUSCULAR HGB CONC 30.6 g/dL (32.0-36.0); MEAN CORPUSCULAR VOLUME 90.7 fL (78.0-93.0); MONOCYTES ABSOLUTE AUTO 0.9 x10^3/uL (0.0-0.8); MONOCYTES PERCENT AUTO 7.7 % (2.0-11.0); NEUTROPHILS PERCENT AUTO 77.1 % (50.0-80.0); PLATELET COUNT,PLT 195 x10^3/uL (130-400); RED BLOOD CELL COUNT 3.35 x10^6/uL (4.5-6.0); WHITE BLOOD CELL COUNT,WBC 11.6 x10^3/uL (4.0-10.0)
[2023-05-01 08:09] LABS: A/G RATIO 0.65; ALBUMIN 2.6 g/dL (3.4-5.0); BILIRUBIN TOTAL 0.4 mg/dL (0.2-1.0); CALCIUM 9.3 mg/dL (8.5-10.1); CREATININE 0.9 mg/dL (0.70-1.30); EST CRCL DRUG DOSING (CG) 64.39 mL/min; PROTEIN TOTAL,TP 6.6 g/dL (6.4-8.2)
[2023-05-01] MEDS: FLUoxetine 20 MG Cap PO SCH (08:13)
[2023-05-01] MEDS: Baclofen 10 MG Tab PO SCH ×2 (08:15→20:19)
[2023-05-01] MEDS: Gabapentin 300 MG Cap PO SCH ×3 (08:15→20:19)
[2023-05-01] MEDS: predniSONE 20 MG Tab PO SCH (08:16)
[2023-05-01] MEDS: Mycophenolate Mofetil 250 MG Cap PO SCH ×2 (08:17→20:19)
[2023-05-01] MEDS: glipiZIDE 5 MG Tab.ER PO SCH (08:18)
[2023-05-01] MEDS: amLODIPine 2.5 MG Tab PO SCH (08:18)
[2023-05-01] MEDS: Apixaban 2.5 MG Tab PO SCH ×2 (08:19→20:20)
[2023-05-01] MEDS: Furosemide 40 MG/4 ML VIAL IV SCH (08:21)
[2023-05-01] MEDS: Pantoprazole 40 MG Tab.CR PO SCH (08:21)
[2023-05-01] MEDS: Budesonide 0.5 MG/2 ML Neb Susp NEB SCH ×2 (08:29→20:18)
[2023-05-01] MEDS: Azithromycin 500 MG in Sodium Chloride 0.9% 250 ML IV SCH (08:31)
[2023-05-01 09:20] LABS: ANION GAP 10.1 mmol/L (5-15); POTASSIUM,K 4.1 mmol/L (3.5-5.1)
[2023-05-01] MEDS: cefTRIAXone 1 GM Vial IVPUSH SCH (11:15)
[2023-05-01] MEDS: Metoprolol Succinate 25 MG Tab.ER PO SCH (20:19)
[2023-05-02] MEDS: Albuterol/Ipratropium 3.0-0.5 MG/3 ML Neb Soln NEB SCH (06:44)
[2023-05-02 07:05] LABS: HEMATOCRIT 31.5 % (40.0-52.0); HEMOGLOBIN 9.6 g/dL (14.0-18.0); MEAN CORPUSCULAR HEMOGLOBIN 27.3 pg (26.0-32.0); MEAN CORPUSCULAR HGB CONC 30.5 g/dL (32.0-36.0); MEAN CORPUSCULAR VOLUME 89.5 fL (78.0-93.0); RED BLOOD CELL COUNT 3.52 x10^6/uL (4.5-6.0); WHITE BLOOD CELL COUNT,WBC 12.4 x10^3/uL (4.0-10.0)
[2023-05-02] MEDS: Budesonide 0.5 MG/2 ML Neb Susp NEB SCH (11:14)
[2023-05-02] MEDS: predniSONE 20 MG Tab PO SCH (11:16)
[2023-05-02] MEDS: Mycophenolate Mofetil 250 MG Cap PO SCH (11:17)
[2023-05-02] MEDS: Gabapentin 300 MG Cap PO SCH ×2 (11:17→19:35)
[2023-05-02] MEDS: Apixaban 2.5 MG Tab PO SCH (11:18)
[2023-05-02] MEDS: amLODIPine 2.5 MG Tab PO SCH (11:18)
[2023-05-02] MEDS: FLUoxetine 20 MG Cap PO SCH (11:19)
[2023-05-02] MEDS: glipiZIDE 5 MG Tab.ER PO SCH (11:21)
[2023-05-02] MEDS: Pantoprazole 40 MG Tab.CR PO SCH (11:21)
[2023-05-02] MEDS: Baclofen 10 MG Tab PO SCH (11:22)
[2023-05-02] MEDS: Furosemide 40 MG/4 ML VIAL IV SCH (11:26)
[2023-05-02] MEDS: cefTRIAXone 1 GM Vial IVPUSH SCH (11:26)
[2023-05-02] MEDS: Sulfamethoxazole/Trimethoprim 400-80 MG Tab PO SCH (11:37)
[2023-05-02 11:47] VITALS: BP 130/80
[2023-05-02 14:53] VITALS: PULSE 88
== END 2023-05-02 15:55 | disposition swing bed (61) | DRG 189 ==
LOC: VM.ED 12:55 → VM.MS 14:22
PROVIDERS: ADMIT Nurse Practitioner Family; ATTEND Family Medicine
DX: J96.21 Acute and chronic respiratory failure with hypoxia (principal); I50.33 Acute on chronic diastolic (congestive) heart failure; E87.20 Acidosis, unspecified; I12.9 Hypertensive chronic kidney disease with stage 1 through stage 4 chronic kidney disease, or unspecified chronic kidney disease; I21.A1 Myocardial infarction type 2; N18.9 Chronic kidney disease, unspecified; I48.91 Unspecified atrial fibrillation; N17.9 Acute kidney failure, unspecified; J44.9 Chronic obstructive pulmonary disease, unspecified; E66.9 Obesity, unspecified; Z68.30 Body mass index [BMI] 30.0-30.9, adult; E87.21 Acute metabolic acidosis; J44.1 Chronic obstructive pulmonary disease with (acute) exacerbation; Z79.01 Long term (current) use of anticoagulants; N18.4 Chronic kidney disease, stage 4 (severe); I13.0 Hypertensive heart and chronic kidney disease with heart failure and stage 1 through stage 4 chronic kidney disease, or unspecified chronic kidney disease; G93.40 Encephalopathy, unspecified; Z66 Do not resuscitate; Z20.822 Contact with and (suspected) exposure to COVID-19; E78.00 Pure hypercholesterolemia, unspecified; J43.9 Emphysema, unspecified; I48.0 Paroxysmal atrial fibrillation; E11.22 Type 2 diabetes mellitus with diabetic chronic kidney disease; D63.1 Anemia in chronic kidney disease; Z99.81 Dependence on supplemental oxygen; Z79.52 Long term (current) use of systemic steroids; Z79.899 Other long term (current) drug therapy; Z88.8 Allergy status to other drugs, medicaments and biological substances; Z79.84 Long term (current) use of oral hypoglycemic drugs; Z79.82 Long term (current) use of aspirin
CPT/HCPCS: 0241U; 36415; 36600; 51701; 51702; 51703; 70450; 71045; 80048; 80053; 81001; 82140; 82803; 82947; 83605; 83735; 83880; 84100; 84145; 84484; 85025; 85027; 85610; 85730; 86140; 87040; 93005; 93010; 94640; 94760; 96365; 96375; 97110-GP; 97116-GP; 97161-GP; 97165-GO; 97530-GP; 99284; 99285-25; A9270-GY; J0456; J0696; J1650; J1940; J2270; J2930; J3490; J7030; J7042; J7050; J7512; J7613-GY; J7620-GY

== ENCOUNTER 2023-05-02 11:06 | Inpatient (IN) | payer MEDICARE, OTHER ==
[2023-05-02] MEDS ORDERED: Albuterol/Ipratropium 3.0-0.5 MG/3 ML Neb Soln NEB PRN (15:09)
[2023-05-02] MEDS ORDERED: Morphine 2 MG/ML SYRINGE IVPUSH PRN (15:09)
[2023-05-02] MEDS ORDERED: [UNRECOGNIZED DRUG - OTHER] INH SCH (15:09)
[2023-05-02] MEDS ORDERED: Albuterol 0.083% 2.5 MG/3 ML Neb Soln NEB PRN (15:09)
[2023-05-02] MEDS ORDERED: Hypromellose 0.3% Ophth Soln 15 ML Bottle EYEBOTH PRN (15:09)
[2023-05-02] MEDS ORDERED: Sennosides/Docusate Sodium 50-8.6 MG Tab PO PRN (15:09)
[2023-05-02] MEDS ORDERED: Polyethylene Glycol 3350 Powder 17 GM Packet PO PRN (15:09)
[2023-05-02] MEDS: Albuterol/Ipratropium 3.0-0.5 MG/3 ML Neb Soln NEB SCH (20:20)
[2023-05-02] MEDS: Budesonide 0.5 MG/2 ML Neb Susp NEB SCH (20:20)
[2023-05-02] MEDS: Apixaban 2.5 MG Tab PO SCH (20:21)
[2023-05-02] MEDS: Gabapentin 300 MG Cap PO SCH (20:21)
[2023-05-02] MEDS: Mycophenolate Mofetil 250 MG Cap PO SCH (20:22)
[2023-05-02] MEDS: Baclofen 10 MG Tab PO SCH (20:22)
[2023-05-02] MEDS: Metoprolol Succinate 25 MG Tab.ER PO SCH (20:23)
[2023-05-03] MEDS: Budesonide 0.5 MG/2 ML Neb Susp NEB SCH ×2 (06:20→20:14)
[2023-05-03] MEDS: Albuterol/Ipratropium 3.0-0.5 MG/3 ML Neb Soln NEB SCH ×2 (07:00→20:14)
[2023-05-03] MEDS ORDERED: Azithromycin 500 MG in Sodium Chloride 0.9% 250 ML IV SCH (09:00)
[2023-05-03] MEDS ORDERED: predniSONE 20 MG Tab PO SCH (09:00)
[2023-05-03] MEDS ORDERED: cefTRIAXone 1 GM Vial IVPUSH SCH (09:00)
[2023-05-03] MEDS: Baclofen 10 MG Tab PO SCH ×2 (09:08→20:18)
[2023-05-03] MEDS: Pantoprazole 40 MG Tab.CR PO SCH (09:08)
[2023-05-03] MEDS: Apixaban 2.5 MG Tab PO SCH ×2 (09:08→20:16)
[2023-05-03] MEDS: Mycophenolate Mofetil 250 MG Cap PO SCH ×2 (09:08→20:15)
[2023-05-03] MEDS: Gabapentin 300 MG Cap PO SCH ×3 (09:09→20:15)
[2023-05-03] MEDS: amLODIPine 2.5 MG Tab PO SCH (09:09)
[2023-05-03] MEDS: glipiZIDE 5 MG Tab.ER PO SCH (09:09)
[2023-05-03] MEDS: FLUoxetine 20 MG Cap PO SCH (09:09)
[2023-05-03] MEDS: Sodium Chloride 0.9% 10 ML Syringe FLUSH PRN (09:10)
[2023-05-03] MEDS: Furosemide 40 MG/4 ML VIAL IV SCH (09:12)
[2023-05-03] MEDS: Acetaminophen 325 MG Tab PO PRN (18:43)
[2023-05-03] MEDS: Metoprolol Succinate 25 MG Tab.ER PO SCH (20:16)
[2023-05-04] MEDS: Albuterol/Ipratropium 3.0-0.5 MG/3 ML Neb Soln NEB SCH ×2 (06:31→20:24)
[2023-05-04] MEDS: Budesonide 0.5 MG/2 ML Neb Susp NEB SCH ×2 (06:32→20:24)
[2023-05-04] MEDS: amLODIPine 2.5 MG Tab PO SCH (08:38)
[2023-05-04] MEDS: Mycophenolate Mofetil 250 MG Cap PO SCH ×2 (08:39→20:24)
[2023-05-04] MEDS: FLUoxetine 20 MG Cap PO SCH (08:39)
[2023-05-04] MEDS: Gabapentin 300 MG Cap PO SCH ×3 (08:39→20:25)
[2023-05-04] MEDS: glipiZIDE 5 MG Tab.ER PO SCH (08:40)
[2023-05-04] MEDS: Baclofen 10 MG Tab PO SCH ×2 (08:40→20:25)
[2023-05-04] MEDS: Pantoprazole 40 MG Tab.CR PO SCH (08:40)
[2023-05-04] MEDS: Apixaban 2.5 MG Tab PO SCH ×2 (08:40→20:25)
[2023-05-04] MEDS: Furosemide 40 MG/4 ML VIAL IV SCH (10:42)
[2023-05-04] MEDS: predniSONE 20 MG Tab PO SCH (10:43)
[2023-05-04] MEDS: Sodium Chloride 0.9% 10 ML Syringe FLUSH PRN ×2 (10:46→19:44)
[2023-05-04] MEDS: Acetaminophen 325 MG Tab PO PRN (12:15)
[2023-05-04] MEDS: Metoprolol Succinate 25 MG Tab.ER PO SCH (20:26)
[2023-05-05] MEDS: Albuterol/Ipratropium 3.0-0.5 MG/3 ML Neb Soln NEB SCH ×2 (06:32→20:06)
[2023-05-05] MEDS: Budesonide 0.5 MG/2 ML Neb Susp NEB SCH ×2 (06:32→20:06)
[2023-05-05] MEDS: Apixaban 2.5 MG Tab PO SCH ×2 (08:30→20:04)
[2023-05-05] MEDS: glipiZIDE 5 MG Tab.ER PO SCH (08:30)
[2023-05-05] MEDS: Baclofen 10 MG Tab PO SCH ×2 (08:30→20:04)
[2023-05-05] MEDS: FLUoxetine 20 MG Cap PO SCH (08:30)
[2023-05-05] MEDS: Gabapentin 300 MG Cap PO SCH ×3 (08:31→20:04)
[2023-05-05] MEDS: Mycophenolate Mofetil 250 MG Cap PO SCH ×2 (08:31→20:04)
[2023-05-05] MEDS: predniSONE 20 MG Tab PO SCH (08:32)
[2023-05-05] MEDS: Pantoprazole 40 MG Tab.CR PO SCH (08:32)
[2023-05-05] MEDS: amLODIPine 2.5 MG Tab PO SCH (08:33)
[2023-05-05] MEDS: Furosemide 40 MG/4 ML VIAL IV SCH (08:33)
[2023-05-05] MEDS: Sulfamethoxazole/Trimethoprim 400-80 MG Tab PO SCH (08:35)
[2023-05-05] MEDS: Acetaminophen 325 MG Tab PO PRN ×2 (12:29→18:41)
[2023-05-05] MEDS: Menthol 10%/Methyl Salicylate 15% 85 GM Tube TOP PRN ×2 (12:30→20:07)
[2023-05-05] MEDS: Metoprolol Succinate 25 MG Tab.ER PO SCH (20:04)
[2023-05-06] MEDS: Budesonide 0.5 MG/2 ML Neb Susp NEB SCH ×2 (06:06→20:01)
[2023-05-06] MEDS: Albuterol/Ipratropium 3.0-0.5 MG/3 ML Neb Soln NEB SCH ×2 (06:06→20:01)
[2023-05-06] MEDS: Mycophenolate Mofetil 250 MG Cap PO SCH ×2 (08:34→20:01)
[2023-05-06] MEDS: glipiZIDE 5 MG Tab.ER PO SCH (08:34)
[2023-05-06] MEDS: Gabapentin 300 MG Cap PO SCH ×3 (08:34→20:02)
[2023-05-06] MEDS: FLUoxetine 20 MG Cap PO SCH (08:34)
[2023-05-06] MEDS: Pantoprazole 40 MG Tab.CR PO SCH (08:35)
[2023-05-06] MEDS: predniSONE 20 MG Tab PO SCH (08:35)
[2023-05-06] MEDS: Apixaban 2.5 MG Tab PO SCH ×2 (08:35→20:03)
[2023-05-06] MEDS: Furosemide 40 MG/4 ML VIAL IV SCH ×2 (08:35→08:40)
[2023-05-06] MEDS: Baclofen 10 MG Tab PO SCH ×2 (08:35→20:02)
[2023-05-06] MEDS: amLODIPine 2.5 MG Tab PO SCH (08:35)
[2023-05-06] MEDS: Furosemide 40 MG Tab PO SCH (09:16)
[2023-05-06] MEDS: Menthol 10%/Methyl Salicylate 15% 85 GM Tube TOP PRN ×2 (09:16→20:03)
[2023-05-06] MEDS: Acetaminophen 325 MG Tab PO PRN (10:51)
[2023-05-06] MEDS: Metoprolol Succinate 25 MG Tab.ER PO SCH (20:01)
[2023-05-07] MEDS: Albuterol/Ipratropium 3.0-0.5 MG/3 ML Neb Soln NEB SCH ×2 (05:59→20:12)
[2023-05-07] MEDS: Budesonide 0.5 MG/2 ML Neb Susp NEB SCH ×2 (06:00→20:12)
[2023-05-07] MEDS: FLUoxetine 20 MG Cap PO SCH (08:49)
[2023-05-07] MEDS: Furosemide 40 MG Tab PO SCH (08:50)
[2023-05-07] MEDS: predniSONE 20 MG Tab PO SCH (08:51)
[2023-05-07] MEDS: amLODIPine 2.5 MG Tab PO SCH (08:51)
[2023-05-07] MEDS: Gabapentin 300 MG Cap PO SCH ×3 (08:52→20:12)
[2023-05-07] MEDS: Baclofen 10 MG Tab PO SCH ×2 (08:52→20:14)
[2023-05-07] MEDS: glipiZIDE 5 MG Tab.ER PO SCH (08:52)
[2023-05-07] MEDS: Pantoprazole 40 MG Tab.CR PO SCH (08:52)
[2023-05-07] MEDS: Mycophenolate Mofetil 250 MG Cap PO SCH ×2 (08:53→20:13)
[2023-05-07] MEDS: Apixaban 2.5 MG Tab PO SCH ×2 (08:53→20:12)
[2023-05-07] MEDS: Sulfamethoxazole/Trimethoprim 400-80 MG Tab PO SCH (09:06)
[2023-05-07] MEDS: Acetaminophen 325 MG Tab PO PRN ×2 (11:19→17:31)
[2023-05-07] MEDS: Menthol 10%/Methyl Salicylate 15% 85 GM Tube TOP PRN (14:58)
[2023-05-07] MEDS: Metoprolol Succinate 25 MG Tab.ER PO SCH (20:13)
[2023-05-08] MEDS: Albuterol/Ipratropium 3.0-0.5 MG/3 ML Neb Soln NEB SCH ×2 (06:18→20:11)
[2023-05-08] MEDS: Budesonide 0.5 MG/2 ML Neb Susp NEB SCH ×2 (06:18→20:11)
[2023-05-08] MEDS: amLODIPine 2.5 MG Tab PO SCH (08:32)
[2023-05-08] MEDS: Apixaban 2.5 MG Tab PO SCH ×2 (08:32→20:13)
[2023-05-08] MEDS: glipiZIDE 5 MG Tab.ER PO SCH (08:32)
[2023-05-08] MEDS: FLUoxetine 20 MG Cap PO SCH (08:32)
[2023-05-08] MEDS: predniSONE 20 MG Tab PO SCH (08:33)
[2023-05-08] MEDS: Gabapentin 300 MG Cap PO SCH ×3 (08:33→20:11)
[2023-05-08] MEDS: Baclofen 10 MG Tab PO SCH ×2 (08:33→20:11)
[2023-05-08] MEDS: Acetaminophen 325 MG Tab PO PRN ×3 (08:33→17:55)
[2023-05-08] MEDS: Furosemide 40 MG Tab PO SCH (08:33)
[2023-05-08] MEDS: Pantoprazole 40 MG Tab.CR PO SCH (08:33)
[2023-05-08] MEDS: Mycophenolate Mofetil 250 MG Cap PO SCH ×2 (08:33→20:13)
[2023-05-08] MEDS: Metoprolol Succinate 25 MG Tab.ER PO SCH (20:12)
[2023-05-08] MEDS: LORazepam 0.5 MG Tab PO PRN (23:23)
[2023-05-09] MEDS: Albuterol/Ipratropium 3.0-0.5 MG/3 ML Neb Soln NEB SCH ×2 (06:41→21:01)
[2023-05-09] MEDS: Budesonide 0.5 MG/2 ML Neb Susp NEB SCH ×2 (06:41→21:01)
[2023-05-09] MEDS: Mycophenolate Mofetil 250 MG Cap PO SCH ×2 (08:13→21:01)
[2023-05-09] MEDS: Furosemide 40 MG Tab PO SCH (08:13)
[2023-05-09] MEDS: Gabapentin 300 MG Cap PO SCH ×3 (08:13→21:00)
[2023-05-09] MEDS: FLUoxetine 20 MG Cap PO SCH (08:13)
[2023-05-09] MEDS: predniSONE 20 MG Tab PO SCH (08:13)
[2023-05-09] MEDS: amLODIPine 2.5 MG Tab PO SCH (08:15)
[2023-05-09] MEDS: Baclofen 10 MG Tab PO SCH ×2 (08:15→21:01)
[2023-05-09] MEDS: Pantoprazole 40 MG Tab.CR PO SCH (08:15)
[2023-05-09] MEDS: Apixaban 2.5 MG Tab PO SCH ×2 (08:15→21:01)
[2023-05-09] MEDS: glipiZIDE 5 MG Tab.ER PO SCH (08:16)
[2023-05-09] MEDS: Sulfamethoxazole/Trimethoprim 400-80 MG Tab PO SCH (08:19)
[2023-05-09] MEDS: Acetaminophen 325 MG Tab PO PRN ×2 (11:39→16:33)
[2023-05-09] MEDS: Menthol 10%/Methyl Salicylate 15% 85 GM Tube TOP PRN (16:33)
[2023-05-09] MEDS: Metoprolol Succinate 25 MG Tab.ER PO SCH (21:01)
[2023-05-10] MEDS: Albuterol/Ipratropium 3.0-0.5 MG/3 ML Neb Soln NEB SCH ×2 (06:05→21:10)
[2023-05-10] MEDS: Budesonide 0.5 MG/2 ML Neb Susp NEB SCH ×2 (06:05→21:10)
[2023-05-10] MEDS: predniSONE 20 MG Tab PO SCH (08:16)
[2023-05-10] MEDS: Gabapentin 300 MG Cap PO SCH ×3 (08:18→21:12)
[2023-05-10] MEDS: Mycophenolate Mofetil 250 MG Cap PO SCH ×2 (08:19→21:12)
[2023-05-10] MEDS: Pantoprazole 40 MG Tab.CR PO SCH (08:19)
[2023-05-10] MEDS: amLODIPine 2.5 MG Tab PO SCH (08:20)
[2023-05-10] MEDS: glipiZIDE 5 MG Tab.ER PO SCH (08:21)
[2023-05-10] MEDS: FLUoxetine 20 MG Cap PO SCH (08:21)
[2023-05-10] MEDS: Furosemide 40 MG Tab PO SCH (08:22)
[2023-05-10] MEDS: Acetaminophen 325 MG Tab PO PRN ×4 (08:23→22:45)
[2023-05-10] MEDS: Apixaban 2.5 MG Tab PO SCH ×2 (08:23→21:10)
[2023-05-10] MEDS: Baclofen 10 MG Tab PO SCH ×2 (08:42→21:11)
[2023-05-10] MEDS: Menthol 10%/Methyl Salicylate 15% 85 GM Tube TOP PRN (10:11)
[2023-05-10] MEDS: Metoprolol Succinate 25 MG Tab.ER PO SCH (21:10)
[2023-05-10] MEDS: LORazepam 0.5 MG Tab PO PRN (22:46)
[2023-05-11] MEDS: Budesonide 0.5 MG/2 ML Neb Susp NEB SCH ×2 (06:35→21:47)
[2023-05-11] MEDS: Albuterol/Ipratropium 3.0-0.5 MG/3 ML Neb Soln NEB SCH ×2 (06:35→21:47)
[2023-05-11] MEDS: Acetaminophen 325 MG Tab PO PRN ×3 (06:37→17:25)
[2023-05-11] MEDS: predniSONE 20 MG Tab PO SCH (08:43)
[2023-05-11] MEDS: Mycophenolate Mofetil 250 MG Cap PO SCH ×2 (08:45→21:48)
[2023-05-11] MEDS: Furosemide 40 MG Tab PO SCH (08:45)
[2023-05-11] MEDS: Pantoprazole 40 MG Tab.CR PO SCH (08:45)
[2023-05-11] MEDS: Gabapentin 300 MG Cap PO SCH ×3 (08:45→21:48)
[2023-05-11] MEDS: FLUoxetine 20 MG Cap PO SCH (08:46)
[2023-05-11] MEDS: Apixaban 2.5 MG Tab PO SCH ×2 (08:46→21:48)
[2023-05-11] MEDS: glipiZIDE 5 MG Tab.ER PO SCH (08:47)
[2023-05-11] MEDS: Baclofen 10 MG Tab PO SCH ×2 (08:47→21:48)
[2023-05-11] MEDS: amLODIPine 2.5 MG Tab PO SCH (08:48)
[2023-05-11] MEDS: Menthol 10%/Methyl Salicylate 15% 85 GM Tube TOP PRN (17:23)
[2023-05-11] MEDS ORDERED: oxyCODONE 5 MG Tab PO ONE (18:33)
[2023-05-11] MEDS: Metoprolol Succinate 25 MG Tab.ER PO SCH (21:49)
[2023-05-12 06:20] VITALS: BP 144/66; PULSE 66
[2023-05-12] MEDS: Budesonide 0.5 MG/2 ML Neb Susp NEB SCH (06:20)
[2023-05-12] MEDS: Albuterol/Ipratropium 3.0-0.5 MG/3 ML Neb Soln NEB SCH (06:20)
[2023-05-12] MEDS: Apixaban 2.5 MG Tab PO SCH (08:28)
[2023-05-12] MEDS: glipiZIDE 5 MG Tab.ER PO SCH (08:30)
[2023-05-12] MEDS: Furosemide 40 MG Tab PO SCH (08:31)
[2023-05-12] MEDS: amLODIPine 2.5 MG Tab PO SCH (08:32)
[2023-05-12] MEDS: Gabapentin 300 MG Cap PO SCH ×2 (08:32→14:23)
[2023-05-12] MEDS: predniSONE 20 MG Tab PO SCH (08:33)
[2023-05-12] MEDS: Mycophenolate Mofetil 250 MG Cap PO SCH (08:36)
[2023-05-12] MEDS: Pantoprazole 40 MG Tab.CR PO SCH (08:36)
[2023-05-12] MEDS: Baclofen 10 MG Tab PO SCH (09:25)
[2023-05-12] MEDS: FLUoxetine 20 MG Cap PO SCH (09:25)
[2023-05-12] MEDS: Sulfamethoxazole/Trimethoprim 400-80 MG Tab PO SCH (14:24)
== END 2023-05-12 14:32 | disposition hospice, home (50) | DRG 189 ==
LOC: VM.MS 15:55
PROVIDERS: ADMIT Family Medicine; ATTEND Family Medicine
DX: J96.21 Acute and chronic respiratory failure with hypoxia (principal); E87.20 Acidosis, unspecified; N17.9 Acute kidney failure, unspecified; J44.9 Chronic obstructive pulmonary disease, unspecified; I50.9 Heart failure, unspecified; Z79.84 Long term (current) use of oral hypoglycemic drugs; Z79.51 Long term (current) use of inhaled steroids; Z79.899 Other long term (current) drug therapy
CPT/HCPCS: 82947; 94640; 94760; 95851-GO; 97110-GP; 97116-GP; 97535-GO; A9270-GY; J1940; J3490; J7512; J7613-GY; J7620-GY

== ENCOUNTER 2023-08-13 13:52 | Inpatient (IN) | payer MEDICARE, OTHER ==
[2023-08-13] MEDS ORDERED: Sennosides/Docusate Sodium 50-8.6 MG Tab PO PRN (16:49)
[2023-08-13] MEDS ORDERED: Haloperidol Lactate 2 MG/ML Oral Soln 15 ML Bottle PO PRN (16:49)
[2023-08-13] MEDS ORDERED: Polyethylene Glycol 3350 Powder 17 GM Packet PO PRN (16:49)
[2023-08-13] MEDS ORDERED: Morphine Oral Concentrate 20 MG/ML 30 ML Bottle PO PRN (16:49)
[2023-08-13] MEDS ORDERED: Acetaminophen 650 MG Supp RECTAL PRN (16:49)
[2023-08-13] MEDS ORDERED: Hyoscyamine 0.125 MG/ML Bottle PO PRN (16:49)
[2023-08-13] MEDS ORDERED: Albuterol/Ipratropium 3.0-0.5 MG/3 ML Neb Soln NEB PRN (16:49)
[2023-08-13] MEDS ORDERED: Acetaminophen 325 MG Tab PO PRN (16:49)
[2023-08-13] MEDS ORDERED: LORazepam 0.5 MG Tab PO PRN (16:49)
[2023-08-13] MEDS ORDERED: Ondansetron 4 MG Tab.DIS PO PRN (16:49)
[2023-08-13] MEDS ORDERED: Bisacodyl 10 MG Supp RECTAL PRN (16:49)
[2023-08-13] MEDS ORDERED: [UNRECOGNIZED DRUG - OTHER] SCH (17:00)
[2023-08-13] MEDS ORDERED: Haloperidol Lactate 2 MG/ML Oral Soln 15 ML Bottle PO SCH (17:00)
[2023-08-13] MEDS ORDERED: Metoprolol Succinate 25 MG Tab.ER PO SCH (21:00)
[2023-08-13] MEDS: Morphine Oral Concentrate 20 MG/ML 30 ML Bottle PO PRN (21:03)
[2023-08-13] MEDS: Haloperidol Lactate 2 MG/ML Oral Soln 15 ML Bottle PO PRN (21:03)
[2023-08-13] MEDS: Baclofen 10 MG Tab PO SCH (22:34)
[2023-08-13] MEDS: Morphine 15 MG Tab.ER PO SCH (22:35)
[2023-08-13] MEDS: Gabapentin 300 MG Cap PO SCH (22:35)
[2023-08-13] MEDS: Haloperidol Lactate 2 MG/ML Oral Soln 15 ML Bottle PO SCH (23:19)
[2023-08-14] MEDS: Haloperidol Lactate 2 MG/ML Oral Soln 15 ML Bottle PO SCH ×5 (00:56→20:17)
[2023-08-14] MEDS ORDERED: Furosemide 40 MG Tab PO SCH (09:00)
[2023-08-14] MEDS ORDERED: FLUoxetine 20 MG Cap PO SCH (09:00)
[2023-08-14] MEDS ORDERED: Insulin Glarg,Human.Rec.Analog 100 Unit/ML 10 ML Vial SUBCUT SCH (09:00)
[2023-08-14] MEDS ORDERED: Pantoprazole 40 MG Tab.CR PO SCH (09:00)
[2023-08-14] MEDS: INSULIN GLARGINE 100 UNIT/ML SUBCUT SCH (09:46)
[2023-08-14] MEDS: Morphine 15 MG Tab.ER PO SCH (09:50)
[2023-08-14] MEDS: Pantoprazole 40 MG Tab.CR (OWN SUPPLY) PO SCH (10:36)
[2023-08-14] MEDS: FLUOXETINE 40 MG PO SCH (11:01)
[2023-08-14] MEDS: PREDNISONE 20 MG PO SCH (11:01)
[2023-08-14] MEDS: METFORMIN 850 MG PO SCH ×2 (11:03→18:26)
[2023-08-14] MEDS: Gabapentin 600mg (own supply) PO SCH ×3 (11:05→20:19)
[2023-08-14] MEDS: Metoprolol Succinate 25 MG Tab.ER (OWN SUPPLY) PO SCH ×2 (11:08→20:15)
[2023-08-14] MEDS: MORPHINE 15 MG PO SCH ×2 (13:19→20:30)
[2023-08-14] MEDS: Morphine Oral Concentrate 20 MG/ML 30 ML Bottle PO PRN (17:06)
[2023-08-15] MEDS: LORazepam 0.5 MG Tab (OWN SUPPLY) PO PRN ×3 (00:18→14:49)
[2023-08-15] MEDS: Gabapentin 300 MG Cap PO SCH (07:57)
[2023-08-15] MEDS: Baclofen 10 MG Tab PO SCH (07:57)
[2023-08-15] MEDS: Haloperidol Lactate 2 MG/ML Oral Soln 15 ML Bottle PO SCH ×4 (07:58→23:24)
[2023-08-15] MEDS: PREDNISONE 20 MG PO SCH (08:40)
[2023-08-15] MEDS: TRIMETHOPRIM PO SCH (08:40)
[2023-08-15] MEDS: SULFAMETHOXAZOLE PO SCH (08:40)
[2023-08-15] MEDS: MORPHINE 15 MG PO SCH ×5 (08:44→23:44)
[2023-08-15] MEDS: Gabapentin 600mg (own supply) PO SCH ×4 (08:45→23:10)
[2023-08-15] MEDS: INSULIN GLARGINE 100 UNIT/ML SUBCUT SCH (08:46)
[2023-08-15] MEDS: Pantoprazole 40 MG Tab.CR (OWN SUPPLY) PO SCH (08:53)
[2023-08-15] MEDS: METFORMIN 850 MG PO SCH ×2 (08:54→23:40)
[2023-08-15] MEDS: FLUOXETINE 40 MG PO SCH (08:54)
[2023-08-15] MEDS: Morphine Oral Concentrate 20 MG/ML 30 ML Bottle PO PRN (14:49)
[2023-08-15] MEDS: Metoprolol Succinate 25 MG Tab.ER (OWN SUPPLY) PO SCH (23:30)
[2023-08-16] MEDS: METFORMIN 850 MG PO SCH ×2 (08:17→21:52)
[2023-08-16] MEDS: Haloperidol Lactate 2 MG/ML Oral Soln 15 ML Bottle PO SCH ×3 (08:17→21:45)
[2023-08-16] MEDS: PREDNISONE 20 MG PO SCH (08:18)
[2023-08-16] MEDS: FLUOXETINE 40 MG PO SCH (08:19)
[2023-08-16] MEDS: Pantoprazole 40 MG Tab.CR (OWN SUPPLY) PO SCH (08:19)
[2023-08-16] MEDS: Gabapentin 600mg (own supply) PO SCH ×3 (08:23→21:55)
[2023-08-16] MEDS: MORPHINE 15 MG PO SCH ×2 (08:23→15:02)
[2023-08-16] MEDS: INSULIN GLARGINE 100 UNIT/ML SUBCUT SCH (08:25)
[2023-08-16] MEDS: LORazepam 0.5 MG Tab (OWN SUPPLY) PO PRN (10:35)
[2023-08-16] MEDS: Morphine Oral Concentrate 20 MG/ML 30 ML Bottle PO PRN (10:35)
[2023-08-16] MEDS: Metoprolol Succinate 25 MG Tab.ER (OWN SUPPLY) PO SCH (21:44)
[2023-08-17] MEDS: LORazepam 0.5 MG Tab (OWN SUPPLY) PO PRN ×3 (04:06→14:04)
[2023-08-17] MEDS: Haloperidol Lactate 2 MG/ML Oral Soln 15 ML Bottle PO PRN (06:51)
[2023-08-17] MEDS: METFORMIN 850 MG PO SCH ×2 (08:14→23:10)
[2023-08-17] MEDS: PREDNISONE 20 MG PO SCH (08:15)
[2023-08-17] MEDS: Haloperidol Lactate 2 MG/ML Oral Soln 15 ML Bottle PO SCH ×3 (08:16→23:01)
[2023-08-17] MEDS: Pantoprazole 40 MG Tab.CR (OWN SUPPLY) PO SCH (08:16)
[2023-08-17] MEDS: FLUOXETINE 40 MG PO SCH (08:16)
[2023-08-17] MEDS: MORPHINE 15 MG PO SCH ×3 (08:19→23:04)
[2023-08-17] MEDS: Gabapentin 600mg (own supply) PO SCH ×3 (08:20→23:03)
[2023-08-17] MEDS: INSULIN GLARGINE 100 UNIT/ML SUBCUT SCH (08:21)
[2023-08-17] MEDS: Morphine Oral Concentrate 20 MG/ML 30 ML Bottle PO PRN (14:05)
[2023-08-17] MEDS: Metoprolol Succinate 25 MG Tab.ER (OWN SUPPLY) PO SCH (23:09)
[2023-08-18 06:22] VITALS: BP 141/66; PULSE 70
[2023-08-18] MEDS: FLUOXETINE 40 MG PO SCH (08:57)
[2023-08-18] MEDS: METFORMIN 850 MG PO SCH (08:57)
[2023-08-18] MEDS: SULFAMETHOXAZOLE PO SCH (08:58)
[2023-08-18] MEDS: PREDNISONE 20 MG PO SCH (08:58)
[2023-08-18] MEDS: TRIMETHOPRIM PO SCH (08:58)
[2023-08-18] MEDS: Pantoprazole 40 MG Tab.CR (OWN SUPPLY) PO SCH (08:59)
[2023-08-18] MEDS: Haloperidol Lactate 2 MG/ML Oral Soln 15 ML Bottle PO SCH (09:00)
[2023-08-18] MEDS: Gabapentin 600mg (own supply) PO SCH (09:02)
[2023-08-18] MEDS: INSULIN GLARGINE 100 UNIT/ML SUBCUT SCH (09:05)
[2023-08-18] MEDS: MORPHINE 15 MG PO SCH (09:11)
== END 2023-08-18 10:50 | DRG 951 ==
LOC: VM.MS 16:02
PROVIDERS: ADMIT Internal Medicine; ATTEND Family Medicine
DX: Z51.5 Encounter for palliative care (principal); J96.91 Respiratory failure, unspecified with hypoxia; J84.9 Interstitial pulmonary disease, unspecified; N18.4 Chronic kidney disease, stage 4 (severe); I50.32 Chronic diastolic (congestive) heart failure; R41.0 Disorientation, unspecified; K59.00 Constipation, unspecified; F41.9 Anxiety disorder, unspecified; J43.9 Emphysema, unspecified; I48.0 Paroxysmal atrial fibrillation; E11.22 Type 2 diabetes mellitus with diabetic chronic kidney disease; G25.81 Restless legs syndrome; F32.9 Major depressive disorder, single episode, unspecified; E11.51 Type 2 diabetes mellitus with diabetic peripheral angiopathy without gangrene; M54.9 Dorsalgia, unspecified; G89.29 Other chronic pain; E11.65 Type 2 diabetes mellitus with hyperglycemia; I25.10 Atherosclerotic heart disease of native coronary artery without angina pectoris; Z88.8 Allergy status to other drugs, medicaments and biological substances; Z79.899 Other long term (current) drug therapy; Z79.4 Long term (current) use of insulin; Z79.2 Long term (current) use of antibiotics; I25.2 Old myocardial infarction; Z75.5 Holiday relief care; Z87.01 Personal history of pneumonia (recurrent); Z87.891 Personal history of nicotine dependence; Z98.49 Cataract extraction status, unspecified eye
CPT/HCPCS: 82947; A9270-GY; J7512